=== PATIENT | female | born 1945 | race African-American/Black ===

== ENCOUNTER 2019-02-12 16:56 | Observation (INO) ==
[2019-02-12 20:31] LABS: Apearance,Urine Slightly Hazy (Clear); Bacteria,Urine Occasional /HPF (Few); Bilirubin,Urine Negative (Negative); Blood, Urine Negative (Negative); Glucose,Urine (UA) Negative (Negative); Hyaline Casts,Urine 7 /LPF (0-3); Ketones,Urine Negative (Negative); Mucus,Urine Moderate /LPF (Occasional); Nitrite,Urine Negative (Negative); Protein,Urine 100 MG/DL; RBC,Urine 1 /HPF (0-4); Squamous Epithelial Cell,Urine Occasional /HPF (0-10); Urine Color Yellow (Yellow); Urine Specific Gravity 1.025 (1.001-1.035); Urine Urobilinogen < 2.0 EU/DL (0.2-1.0); WBC,Urine 33 /HPF (0-6)
[2019-02-12 20:44] LABS: Basophils % 0.2 % (0.0-0.8); Eosinophils # 0.1 10*3/uL (0.0-0.87); Eosinophils % 1.6 % (0.00-10.9); Hemoglobin 8.7 GM/DL (12.0-16.0); Immature Granulocytes % 0.2 %; Immature Granulocytes Absolute 0.01 #; Lymphocytes # 1.2 10*3/uL (1.4-4.0); Lymphocytes % 27.7 % (21.3-54.2); Mean Corpuscular Volume 94.9 FL (87-102); Mean Platelet Volume 10.8 FL (9.6-12.0); Monocytes % 10.1 % (1.7-12.7); Neutrophils % 60.2 % (38.7-73.9); Platelet Count 237 T/CUMM (130-400); Red Blood Count 3.16 MC/CUMM (3.8-5.5); Red Cell Distribution Width 15.3 % (9.3-17.3); White Blood Count 4.3 T/CUMM (4-12)
[2019-02-12] MEDS ORDERED: cefTRIAXone 1,000 MG in SODIUM CHLORIDE 0.9% 100 ML IV STA (20:45)
[2019-02-12 20:47] LABS: Alanine Aminotransferase 14 U/L (13-56); Albumin 3.5 G/DL (3.4-5.0); Alkaline Phosphatase 49 U/L (45-117); Amylase 108 U/L (25-115); Aspartate Amino Transferase 21 U/L (0-37); Bilirubin,Total < 0.39 MG/DL (0.2-1.0); Blood Urea Nitrogen 14 MG/DL (7-18); Calcium 9.5 MG/DL (8.5-10.1); Glucose 89 MG/DL (74-106); Osmolality,Calculated 285.8 MOS/KG (273-304); Total Protein 7.9 G/DL (6.4-8.3)
[2019-02-12] MEDS ORDERED: ACETAMINOPHEN 500 MG TABLET PO STA (20:48)
[2019-02-12] MEDS ORDERED: methylPREDNISolone SOD SUC 125 MG/2 ML VIAL IV STA (22:16)
[2019-02-12] MEDS ORDERED: ALBUTEROL/IPRATROPIUM 3 ML NEB RESP TX STA (22:17)
[2019-02-12] MEDS ORDERED: FUROSEMIDE 40 MG/4 ML VIAL IV STA (22:38)
[2019-02-13] MEDS ORDERED: KETOROLAC 30 MG/1 ML VIAL IV STA (00:55)
[2019-02-13] MEDS ORDERED: PHENAZOPYRIDINE 95 MG TABLET PO STA (00:55)
[2019-02-13] MEDS ORDERED: MAGNESIUM SULF RIDER 4 GM in PREMIX 1 EACH IV PRN (00:59)
[2019-02-13] MEDS ORDERED: ZALEPLON 5 MG CAPSULE PO PRN (00:59)
[2019-02-13] MEDS ORDERED: MAGNESIUM SULF RIDER 2 GM in PREMIX 1 EACH IV PRN (00:59)
[2019-02-13] MEDS ORDERED: DOCUSATE SODIUM 100 MG CAPSULE PO PRN (00:59)
[2019-02-13] MEDS ORDERED: ACETAMINOPHEN 325 MG TABLET PO PRN (00:59)
[2019-02-13] MEDS: POTASSIUM CHLORIDE 20 MEQ TABLET PO PRN ×2 (03:03→06:26)
[2019-02-13] MEDS: DICYCLOMINE 20 MG TABLET PO SCH ×3 (03:03→17:57)
[2019-02-13 07:44] LABS: Albumin 3.4 G/DL (3.4-5.0); Bilirubin,Total 0.4 MG/DL (0.2-1.0); Calcium 9.2 MG/DL (8.5-10.1); Osmolality,Calculated 287.8 MOS/KG (273-304); Total Protein 7.8 G/DL (6.4-8.3)
[2019-02-13] MEDS: ROSUVASTATIN 20 MG TABLET PO SCH (08:47)
[2019-02-13] MEDS: ESCITALOPRAM 10 MG TABLET PO SCH (08:47)
[2019-02-13] MEDS: MECLIZINE 25 MG TABLET PO SCH ×3 (08:48→22:03)
[2019-02-13] MEDS: SUCRALFATE 1 GM TABLET PO SCH ×4 (08:48→22:03)
[2019-02-13] MEDS: busPIRone 15 MG TABLET PO SCH ×2 (08:48→22:02)
[2019-02-13] MEDS: PANTOPRAZOLE 40 MG TABLET PO SCH (08:48)
[2019-02-13] MEDS: MONTELUKAST 10 MG TABLET PO SCH (08:49)
[2019-02-13] MEDS: METOPROLOL SUCCINATE XL 50 MG TABLET PO SCH ×2 (08:49→22:03)
[2019-02-13] MEDS: POTASSIUM CHLORIDE 20 MEQ TABLET PO SCH (08:49)
[2019-02-13] MEDS: ALLOPURINOL 100 MG TABLET PO SCH (08:49)
[2019-02-13] MEDS: COLESTIPOL 1 GM TABLET PO SCH ×2 (08:49→22:01)
[2019-02-13] MEDS: ASPIRIN EC 81 MG TABLET PO SCH (08:49)
[2019-02-13] MEDS: FUROSEMIDE 40 MG/4 ML VIAL IV SCH ×2 (08:50→15:22)
[2019-02-13] MEDS: AZELASTINE NASAL 137 MCG/SPRAY 30 ML BOTTLE BOTH NARES SCH ×2 (08:52→22:04)
[2019-02-13] MEDS ORDERED: NON-FORMULARY MEDICATION (Docusate Sodium 100 MG) PO SCH (09:00)
[2019-02-13] MEDS ORDERED: NON-FORMULARY MEDICATION (Dexlansoprazole [Dexilant] 60 MG) PO SCH (09:00)
[2019-02-13] MEDS ORDERED: valACYclovir 500 MG TABLET PO SCH (09:00)
[2019-02-13] MEDS ORDERED: oxyCODONE/ACETAMINOPHEN 5-325 MG TABLET PO SCH (09:00)
[2019-02-13] MEDS: LEVOFLOXACIN INJ 500 MG in PREMIX 1 EACH IV SCH (11:52)
[2019-02-13] MEDS: ONDANSETRON 4 MG/2 ML VIAL IV PRN (15:21)
[2019-02-13] MEDS ORDERED: RIVAROXABAN 20 MG TABLET PO SCH (17:00)
[2019-02-13] MEDS ORDERED: SACUBITRIL/VALSARTAN 49-51 MG TABLET PO SCH (21:00)
[2019-02-13] MEDS ORDERED: CETIRIZINE 10 MG TABLET PO SCH (21:00)
[2019-02-14] MEDS: POTASSIUM CHLORIDE 20 MEQ TABLET PO PRN (01:26)
[2019-02-14] MEDS: DICYCLOMINE 20 MG TABLET PO SCH ×2 (01:26→11:05)
[2019-02-14] MEDS ORDERED: ALUMINUM/MAGNES/SIMETH MAX STR 30 ML UDCUP PO PRN (04:06)
[2019-02-14] MEDS: AZELASTINE NASAL 137 MCG/SPRAY 30 ML BOTTLE BOTH NARES SCH ×2 (08:58→09:36)
[2019-02-14] MEDS: busPIRone 15 MG TABLET PO SCH ×2 (08:58→09:34)
[2019-02-14] MEDS: FUROSEMIDE 40 MG/4 ML VIAL IV SCH ×2 (08:59→09:33)
[2019-02-14] MEDS: MECLIZINE 25 MG TABLET PO SCH ×2 (08:59→09:35)
[2019-02-14] MEDS: ROSUVASTATIN 20 MG TABLET PO SCH ×2 (08:59→09:33)
[2019-02-14] MEDS: ALLOPURINOL 100 MG TABLET PO SCH ×2 (08:59→09:34)
[2019-02-14] MEDS: PANTOPRAZOLE 40 MG TABLET PO SCH ×2 (09:00→09:35)
[2019-02-14] MEDS: SUCRALFATE 1 GM TABLET PO SCH ×3 (09:00→13:48)
[2019-02-14] MEDS: METOPROLOL SUCCINATE XL 50 MG TABLET PO SCH ×2 (09:00→09:35)
[2019-02-14] MEDS: ASPIRIN EC 81 MG TABLET PO SCH ×2 (09:00→09:36)
[2019-02-14] MEDS: COLESTIPOL 1 GM TABLET PO SCH ×2 (09:00→09:35)
[2019-02-14] MEDS: POTASSIUM CHLORIDE 20 MEQ TABLET PO SCH ×2 (09:00→09:34)
[2019-02-14] MEDS: ESCITALOPRAM 10 MG TABLET PO SCH ×2 (09:00→09:35)
[2019-02-14] MEDS: MONTELUKAST 10 MG TABLET PO SCH ×2 (09:00→09:34)
[2019-02-14] MEDS ORDERED: POLYETHYLENE GLYCOL POWDER 17 GM PACK PO PRN (09:18)
[2019-02-14 10:41] LABS: Basophils % 0.2 % (0.0-0.8); Eosinophils % 0.4 % (0.00-10.9); Hematocrit 27.1 VOL% (35.7-47.0); Immature Granulocytes % 0.2 %; Immature Granulocytes Absolute 0.01 #; Lymphocytes # 0.9 10*3/uL (1.4-4.0); Mean Corpuscular HGB Conc 29.5 GM/DL (32-36); Mean Corpuscular Volume 93.8 FL (87-102); Mean Platelet Volume 10.7 FL (9.6-12.0); Monocytes % 6.6 % (1.7-12.7); Neutrophils % 74.6 % (38.7-73.9); Platelet Count 208 T/CUMM (130-400); Red Blood Count 2.89 MC/CUMM (3.8-5.5); Red Cell Distribution Width 15.2 % (9.3-17.3); White Blood Count 5.2 T/CUMM (4-12)
[2019-02-14] MEDS: ONDANSETRON 4 MG/2 ML VIAL IV PRN (11:05)
[2019-02-14 11:23] LABS: Calcium 8.5 MG/DL (8.5-10.1)
[2019-02-14] MEDS: LEVOFLOXACIN INJ 500 MG in PREMIX 1 EACH IV SCH (13:47)
[2019-02-14 15:49] VITALS: BP 120/73
[2019-02-14] MEDS ORDERED: FLUTICASONE 50 MCG NASAL SPRAY 16 GM BOTTLE BOTH NARES SCH (21:00)
[2019-02-16] MEDS ORDERED: ERGOCALCIFEROL 50,000 UNIT CAPSULE PO SCH (09:00)
== END 2019-02-14 17:20 | disposition home or self-care (01) ==
LOC: N.ED 16:56 → N.EDINP 16:56 → N.TELEN 02-13 01:17
PROVIDERS: ADMIT Internal Medicine; ATTEND Internal Medicine

== ENCOUNTER 2019-03-13 03:25 | Inpatient (IN) ==
[2019-03-13] MEDS ORDERED: PANTOPRAZOLE 40 MG VIAL IV STA (03:39)
[2019-03-13 04:15] LABS: Basophils % 0.4 % (0.0-0.8); Eosinophils # 0.1 10*3/uL (0.0-0.87); Eosinophils % 1.5 % (0.00-10.9); Hematocrit 25.2 VOL% (35.7-47.0); Hemoglobin 7.3 GM/DL (12.0-16.0); Immature Granulocytes % 0.4 %; Immature Granulocytes Absolute 0.02 #; Lymphocytes # 0.8 10*3/uL (1.4-4.0); Lymphocytes % 17.3 % (21.3-54.2); Mean Corpuscular Volume 95.5 FL (87-102); Mean Platelet Volume 10.9 FL (9.6-12.0); Monocytes % 9.1 % (1.7-12.7); Neutrophils % 71.3 % (38.7-73.9); Platelet Count 161 T/CUMM (130-400); Red Blood Count 2.64 MC/CUMM (3.8-5.5); Red Cell Distribution Width 15.7 % (9.3-17.3); White Blood Count 4.6 T/CUMM (4-12)
[2019-03-13] MEDS ORDERED: ONDANSETRON 4 MG/2 ML VIAL IV STA (04:33)
[2019-03-13 04:53] LABS: Alanine Aminotransferase 18 U/L (13-56); Albumin 3.3 G/DL (3.4-5.0); Alkaline Phosphatase 54 U/L (45-117); Aspartate Amino Transferase 28 U/L (0-37); Bilirubin,Total < 0.39 MG/DL (0.2-1.0); Blood Urea Nitrogen 17 MG/DL (7-18); Calcium 8.8 MG/DL (8.5-10.1); Glucose 96 MG/DL (74-106); Osmolality,Calculated 284.1 MOS/KG (273-304)
[2019-03-13] MEDS ORDERED: FUROSEMIDE 40 MG/4 ML VIAL IV STA (05:15)
[2019-03-13] MEDS ORDERED: MAGNESIUM SULF RIDER 4 GM in PREMIX 1 EACH IV PRN (05:25)
[2019-03-13] MEDS ORDERED: MAGNESIUM SULF RIDER 2 GM in PREMIX 1 EACH IV PRN (05:25)
[2019-03-13] MEDS ORDERED: ENOXAPARIN 40 MG/0.4 ML SYRINGE SUBCUT SCH (06:00)
[2019-03-13 06:25] LABS: Basophils % 0.3 % (0.0-0.8); Eosinophils # 0.1 10*3/uL (0.0-0.87); Eosinophils % 1.2 % (0.00-10.9); Immature Granulocytes % 0.3 %; Immature Granulocytes Absolute 0.02 #; Lymphocytes # 1.1 10*3/uL (1.4-4.0); Lymphocytes % 18.9 % (21.3-54.2); Mean Corpuscular HGB Conc 28.6 GM/DL (32-36); Mean Corpuscular Volume 95.2 FL (87-102); Mean Platelet Volume 10.7 FL (9.6-12.0); Monocytes % 7.4 % (1.7-12.7); Neutrophils % 71.9 % (38.7-73.9); Platelet Count 186 T/CUMM (130-400); Red Blood Count 2.94 MC/CUMM (3.8-5.5); Red Cell Distribution Width 15.8 % (9.3-17.3); White Blood Count 5.8 T/CUMM (4-12)
[2019-03-13 06:57] LABS: Elliptocytes Few; Hypochromasia 1+; Platelet Estimate Adequate
[2019-03-13 07:35] LABS: Sedimentation Rate-Westergren 75 MM/HR (0-30)
[2019-03-13 08:12] LABS: Folate 10.8 NG/ML (5.4-24.0); Vitamin B12 354 PG/ML (211-911)
[2019-03-13] MEDS: FUROSEMIDE 40 MG/4 ML VIAL IV SCH ×2 (09:32→15:49)
[2019-03-13] MEDS: PANTOPRAZOLE 40 MG TABLET PO SCH (09:32)
[2019-03-13 09:57] LABS: Hemoglobin A1 (Alkaline) 97.8 % (96.5-98.5); Hemoglobin A2 (Alkaline) 2.2 % (1.5-3.5)
[2019-03-13] MEDS: SACUBITRIL/VALSARTAN 49-51 MG TABLET PO SCH ×2 (11:36→22:10)
[2019-03-13] MEDS: amLODIPine 5 MG TABLET PO SCH (11:36)
[2019-03-13] MEDS: METOPROLOL SUCCINATE XL 50 MG TABLET PO SCH ×2 (11:36→22:09)
[2019-03-13] MEDS: ACETAMINOPHEN 325 MG TABLET PO PRN (14:11)
[2019-03-13] MEDS: ROSUVASTATIN 20 MG TABLET PO SCH (22:10)
[2019-03-14 05:52] LABS: Osmolality,Calculated 274.5 MOS/KG (273-304)
[2019-03-14 06:01] LABS: Basophils % 0.2 % (0.0-0.8); Eosinophils # 0.1 10*3/uL (0.0-0.87); Eosinophils % 1.5 % (0.00-10.9); Hematocrit 28.2 VOL% (35.7-47.0); Hemoglobin 8.3 GM/DL (12.0-16.0); Immature Granulocytes % 0.2 %; Immature Granulocytes Absolute 0.01 #; Lymphocytes # 0.7 10*3/uL (1.4-4.0); Lymphocytes % 17.1 % (21.3-54.2); Mean Corpuscular HGB Conc 29.4 GM/DL (32-36); Mean Corpuscular Volume 91.9 FL (87-102); Mean Platelet Volume 11.4 FL (9.6-12.0); Monocytes % 9.7 % (1.7-12.7); Neutrophils % 71.3 % (38.7-73.9); Platelet Count 186 T/CUMM (130-400); Red Blood Count 3.07 MC/CUMM (3.8-5.5); Red Cell Distribution Width 15.8 % (9.3-17.3)
[2019-03-14] MEDS: SACUBITRIL/VALSARTAN 49-51 MG TABLET PO SCH ×2 (09:09→21:15)
[2019-03-14] MEDS: METOPROLOL SUCCINATE XL 50 MG TABLET PO SCH ×2 (09:10→21:16)
[2019-03-14] MEDS: amLODIPine 5 MG TABLET PO SCH (09:10)
[2019-03-14] MEDS: FUROSEMIDE 40 MG/4 ML VIAL IV SCH ×2 (09:10→18:41)
[2019-03-14] MEDS: ASPIRIN EC 81 MG TABLET PO SCH (09:10)
[2019-03-14] MEDS: PANTOPRAZOLE 40 MG TABLET PO SCH (09:10)
[2019-03-14] MEDS: ROSUVASTATIN 20 MG TABLET PO SCH (21:15)
[2019-03-14] MEDS: ACETAMINOPHEN 325 MG TABLET PO PRN (21:15)
[2019-03-15] MEDS: POTASSIUM CHLORIDE 20 MEQ TABLET PO PRN ×4 (04:19→11:42)
[2019-03-15 06:48] LABS: Basophils % 0.3 % (0.0-0.8); Eosinophils # 0.1 10*3/uL (0.0-0.87); Eosinophils % 2.1 % (0.00-10.9); Hemoglobin 9.5 GM/DL (12.0-16.0); Immature Granulocytes % 0.3 %; Immature Granulocytes Absolute 0.01 #; Lymphocytes # 0.8 10*3/uL (1.4-4.0); Lymphocytes % 23.4 % (21.3-54.2); Mean Corpuscular HGB Conc 29.7 GM/DL (32-36); Mean Platelet Volume 11.1 FL (9.6-12.0); Monocytes % 11.9 % (1.7-12.7); Platelet Count 196 T/CUMM (130-400); Red Blood Count 3.48 MC/CUMM (3.8-5.5); Red Cell Distribution Width 15.6 % (9.3-17.3); White Blood Count 3.3 T/CUMM (4-12)
[2019-03-15 07:13] LABS: Calcium 9.1 MG/DL (8.5-10.1); Osmolality,Calculated 276.7 MOS/KG (273-304)
[2019-03-15] MEDS: FUROSEMIDE 40 MG/4 ML VIAL IV SCH (08:37)
[2019-03-15] MEDS: ASPIRIN EC 81 MG TABLET PO SCH (08:37)
[2019-03-15] MEDS: PANTOPRAZOLE 40 MG TABLET PO SCH (08:37)
[2019-03-15] MEDS: SACUBITRIL/VALSARTAN 49-51 MG TABLET PO SCH ×2 (08:37→21:45)
[2019-03-15] MEDS ORDERED: METOPROLOL SUCCINATE XL 100 MG TABLET PO SCH (09:00)
[2019-03-15] MEDS: ONDANSETRON 4 MG/2 ML VIAL IV PRN (10:43)
[2019-03-15] MEDS ORDERED: SODIUM CHLORIDE 0.9% 250 ML IV ONE (12:55)
[2019-03-15] MEDS: ROSUVASTATIN 20 MG TABLET PO SCH (21:45)
[2019-03-16 06:25] LABS: Basophils % 0.6 % (0.0-0.8); Eosinophils # 0.1 10*3/uL (0.0-0.87); Eosinophils % 1.7 % (0.00-10.9); Hematocrit 30.1 VOL% (35.7-47.0); Hemoglobin 8.8 GM/DL (12.0-16.0); Immature Granulocytes % 0.6 %; Immature Granulocytes Absolute 0.02 #; Lymphocytes % 27.7 % (21.3-54.2); Mean Corpuscular HGB Conc 29.2 GM/DL (32-36); Mean Platelet Volume 11.2 FL (9.6-12.0); Monocytes % 13.1 % (1.7-12.7); Neutrophils % 56.3 % (38.7-73.9); Platelet Count 192 T/CUMM (130-400); Red Blood Count 3.27 MC/CUMM (3.8-5.5); Red Cell Distribution Width 15.5 % (9.3-17.3); White Blood Count 3.6 T/CUMM (4-12)
[2019-03-16 06:48] LABS: Calcium 9.2 MG/DL (8.5-10.1); Osmolality,Calculated 281.4 MOS/KG (273-304)
[2019-03-16] MEDS: FUROSEMIDE 40 MG/4 ML VIAL IV SCH (07:27)
[2019-03-16] MEDS: PANTOPRAZOLE 40 MG TABLET PO SCH (08:00)
[2019-03-16] MEDS: ASPIRIN EC 81 MG TABLET PO SCH (08:00)
[2019-03-16] MEDS: METOPROLOL SUCCINATE XL 50 MG TABLET PO SCH (08:00)
[2019-03-16] MEDS: SACUBITRIL/VALSARTAN 49-51 MG TABLET PO SCH ×2 (08:00→20:38)
[2019-03-16] MEDS: ONDANSETRON 4 MG/2 ML VIAL IV PRN (16:19)
[2019-03-16] MEDS: ROSUVASTATIN 20 MG TABLET PO SCH (20:38)
[2019-03-17 05:28] LABS: Basophils % 0.6 % (0.0-0.8); Eosinophils # 0.1 10*3/uL (0.0-0.87); Eosinophils % 2.1 % (0.00-10.9); Hematocrit 29.8 VOL% (35.7-47.0); Hemoglobin 8.8 GM/DL (12.0-16.0); Immature Granulocytes % 0.3 %; Immature Granulocytes Absolute 0.01 #; Lymphocytes % 30.9 % (21.3-54.2); Mean Corpuscular HGB Conc 29.5 GM/DL (32-36); Mean Corpuscular Volume 91.7 FL (87-102); Mean Platelet Volume 10.9 FL (9.6-12.0); Monocytes % 15.4 % (1.7-12.7); Neutrophils % 50.7 % (38.7-73.9); Platelet Count 193 T/CUMM (130-400); Red Blood Count 3.25 MC/CUMM (3.8-5.5); Red Cell Distribution Width 15.6 % (9.3-17.3); White Blood Count 3.4 T/CUMM (4-12)
[2019-03-17 05:54] LABS: Calcium 9.4 MG/DL (8.5-10.1); Osmolality,Calculated 284.1 MOS/KG (273-304)
[2019-03-17] MEDS: PANTOPRAZOLE 40 MG TABLET PO SCH (08:35)
[2019-03-17] MEDS: SACUBITRIL/VALSARTAN 49-51 MG TABLET PO SCH (08:35)
[2019-03-17] MEDS: METOPROLOL SUCCINATE XL 50 MG TABLET PO SCH (08:35)
[2019-03-17] MEDS: ASPIRIN EC 81 MG TABLET PO SCH (08:35)
[2019-03-17 12:53] VITALS: BP 136/81
== END 2019-03-17 12:51 | disposition home or self-care (01) | DRG 292 ==
LOC: EDUNIT# → EDBD → N.ED 03:25 → N.EDINP 05:25 → N.5E 06:42
PROVIDERS: ADMIT Internal Medicine; ATTEND Internal Medicine

== ENCOUNTER 2019-10-04 19:10 | Inpatient (IN) ==
[2019-10-04] MEDS ORDERED: KETOROLAC 30 MG/1 ML VIAL IV STA (19:49)
[2019-10-04] MEDS ORDERED: HYDROmorphone 2 MG/1 ML VIAL IV STA (19:49)
[2019-10-04] MEDS ORDERED: ONDANSETRON 4 MG/2 ML VIAL IV STA (19:49)
[2019-10-04] MEDS ORDERED: ALUM/MAG/SIMETH/LIDO VISC 1:1 30 ML BOTTLE PO STA (19:49)
[2019-10-04] MEDS ORDERED: PANTOPRAZOLE 40 MG VIAL IV STA (19:49)
[2019-10-04 20:03] LABS: Basophils % 0.2 % (0.0-0.8); Eosinophils # 0.1 10*3/uL (0.0-0.87); Eosinophils % 0.6 % (0.00-10.9); Hematocrit 32.1 VOL% (35.7-47.0); Hemoglobin 9.9 GM/DL (12.0-16.0); Immature Granulocytes % 0.4 %; Immature Granulocytes Absolute 0.04 #; Lymphocytes # 0.8 10*3/uL (1.4-4.0); Lymphocytes % 8.1 % (21.3-54.2); Mean Corpuscular HGB Conc 30.8 GM/DL (32-36); Mean Corpuscular Volume 102.9 FL (87-102); Mean Platelet Volume 10.1 FL (9.6-12.0); Monocytes % 5.9 % (1.7-12.7); Neutrophils % 84.8 % (38.7-73.9); Platelet Count 131 T/CUMM (130-400); Red Blood Count 3.12 MC/CUMM (3.8-5.5); Red Cell Distribution Width 15.4 % (9.3-17.3); White Blood Count 9.7 T/CUMM (4-12)
[2019-10-04 20:26] LABS: Albumin 3.5 G/DL (3.4-5.0); Bilirubin,Total 0.4 MG/DL (0.2-1.0); Calcium 8.4 MG/DL (8.5-10.1); Osmolality,Calculated 282.5 MOS/KG (273-304)
[2019-10-04] MEDS ORDERED: LEVOFLOXACIN INJ 750 MG in PREMIX 1 EACH IV STA (21:07)
[2019-10-04] MEDS ORDERED: ALBUTEROL/IPRATROPIUM 3 ML NEB RESP TX STA (21:07)
[2019-10-04 21:26] LABS: Apearance,Urine CLEAR (Clear); Bilirubin,Urine Negative (Negative); Blood, Urine Negative (Negative); Glucose,Urine (UA) Negative (Negative); Ketones,Urine Negative (Negative); Mucus,Urine Occasional /LPF (Occasional); Nitrite,Urine Negative (Negative); Protein,Urine 30 MG/DL; RBC,Urine <1 /HPF (0-4); Squamous Epithelial Cell,Urine Occasional /HPF (0-10); Urine Color Yellow (Yellow); Urine Specific Gravity 1.021 (1.001-1.035); Urine Urobilinogen < 2.0 EU/DL (0.2-1.0); WBC,Urine 1 /HPF (0-6)
[2019-10-04] MEDS ORDERED: ALBUTEROL 2.5 MG/3 ML NEB RESP TX PRN (21:28)
[2019-10-04] MEDS ORDERED: DOCUSATE SODIUM 100 MG CAPSULE PO PRN (21:29)
[2019-10-04] MEDS ORDERED: diphenhydrAMINE CAP 25 MG CAPSULE PO PRN (21:29)
[2019-10-04] MEDS ORDERED: ZALEPLON 5 MG CAPSULE PO PRN (21:29)
[2019-10-04] MEDS ORDERED: ACETAMINOPHEN 325 MG TABLET PO PRN (21:29)
[2019-10-04] MEDS ORDERED: ONDANSETRON 4 MG/2 ML VIAL IV PRN (21:29)
[2019-10-04] MEDS ORDERED: ENOXAPARIN 100 MG/ML SYRINGE SUBCUT SCH (21:30)
[2019-10-04 21:31] LABS: Barbiturates Screen,Urine Negative (Negative); Benzodiazepines Screen,Urine Negative (Negative); Cannabinoid Screen,Urine Negative (Negative); Opiate Screen,Urine Positive (Negative); Phencyclidine Screen,Urine Negative (Negative)
[2019-10-05] MEDS ORDERED: ALBUTEROL 2.5 MG/3 ML NEB RESP TX SCH (01:00)
[2019-10-05] MEDS: ALBUTEROL/IPRATROPIUM 3 ML NEB RESP TX SCH ×7 (01:01→22:37)
[2019-10-05 01:23] LABS: ABG Base Excess -1.3 MMOL/L (-2.5-2.5); ABG HCO3 23.4 MMOL/L (20-26); ABG Oxygen Saturation 99.3 % (95-100); ABG PCO2 55.6 MM HG (35-48); ABG TCO2 24.4 MMOL/L (23-27); Allen Test Positive
[2019-10-05] MEDS: SODIUM CHLORIDE 0.9% 1,000 ML IV SCH ×2 (02:04→11:46)
[2019-10-05 05:52] LABS: Basophils % 0.1 % (0.0-0.8); Eosinophils % 0.3 % (0.00-10.9); Hematocrit 27.5 VOL% (35.7-47.0); Hemoglobin 8.3 GM/DL (12.0-16.0); Immature Granulocytes % 0.3 %; Immature Granulocytes Absolute 0.02 #; Lymphocytes # 0.7 10*3/uL (1.4-4.0); Lymphocytes % 9.9 % (21.3-54.2); Mean Corpuscular HGB Conc 30.2 GM/DL (32-36); Mean Corpuscular Volume 103.8 FL (87-102); Mean Platelet Volume 10.4 FL (9.6-12.0); Monocytes % 6.9 % (1.7-12.7); Neutrophils % 82.5 % (38.7-73.9); Platelet Count 114 T/CUMM (130-400); Red Blood Count 2.65 MC/CUMM (3.8-5.5); Red Cell Distribution Width 15.4 % (9.3-17.3); White Blood Count 7.1 T/CUMM (4-12)
[2019-10-05 05:58] LABS: Osmolality,Calculated 290.1 MOS/KG (273-304)
[2019-10-05 06:53] LABS: Hepatitis B Core IgM Quant 0.05 Index; Hepatitis B Surface Ag Quant < 0.10 Index; Hepatitis B Surface Ag Result Negative (Negative); Hepatitis C Virus Ab Quant 0.08 Index; Hepatitis C Virus Ab Result Negative (Negative)
[2019-10-05] MEDS: PANTOPRAZOLE 40 MG TABLET PO SCH (10:02)
[2019-10-05] MEDS: METOPROLOL SUCCINATE XL 50 MG TABLET PO SCH (10:02)
[2019-10-05] MEDS: MONTELUKAST 10 MG TABLET PO SCH (10:02)
[2019-10-05] MEDS: POTASSIUM CHLORIDE 20 MEQ TABLET PO SCH (10:02)
[2019-10-05] MEDS: ASPIRIN EC 81 MG TABLET PO SCH (10:02)
[2019-10-05] MEDS ORDERED: FUROSEMIDE 40 MG/4 ML VIAL IV ONE (12:09)
[2019-10-05] MEDS: RIVAROXABAN 20 MG TABLET PO SCH (16:29)
[2019-10-05] MEDS: ROSUVASTATIN 20 MG TABLET PO SCH (21:28)
[2019-10-05] MEDS: FUROSEMIDE 40 MG TABLET PO SCH (21:29)
[2019-10-05] MEDS: LEVOFLOXACIN INJ 750 MG in PREMIX 1 EACH IV SCH (21:29)
[2019-10-06] MEDS: ALBUTEROL/IPRATROPIUM 3 ML NEB RESP TX SCH ×5 (02:37→20:26)
[2019-10-06 04:06] LABS: % Iron Saturation 11.1 % (18-50); Albumin 2.8 G/DL (3.4-5.0); Bilirubin,Direct 0.12 MG/DL (0.0-0.20); Bilirubin,Indirect 0.3 MG/DL (0.0-1.0); Bilirubin,Total 0.4 MG/DL (0.2-1.0); Calcium 7.9 MG/DL (8.5-10.1); Ferritin 64.8 ng/ml (8-252); Osmolality,Calculated 286.5 MOS/KG (273-304); Total Protein 6.6 G/DL (6.4-8.3)
[2019-10-06 04:11] LABS: Basophils % 0.2 % (0.0-0.8); Eosinophils # 0.1 10*3/uL (0.0-0.87); Eosinophils % 1.7 % (0.00-10.9); Hematocrit 26.5 VOL% (35.7-47.0); Immature Granulocytes % 0.6 %; Immature Granulocytes Absolute 0.03 #; Lymphocytes # 0.7 10*3/uL (1.4-4.0); Lymphocytes % 13.2 % (21.3-54.2); Mean Corpuscular HGB Conc 30.2 GM/DL (32-36); Mean Corpuscular Volume 103.1 FL (87-102); Mean Platelet Volume 10.5 FL (9.6-12.0); Monocytes % 6.8 % (1.7-12.7); Neutrophils % 77.5 % (38.7-73.9); Platelet Count 113 T/CUMM (130-400); Red Blood Count 2.57 MC/CUMM (3.8-5.5); Red Cell Distribution Width 15.2 % (9.3-17.3); White Blood Count 5.2 T/CUMM (4-12)
[2019-10-06 04:54] LABS: Folate 8.5 NG/ML (5.4-24.0)
[2019-10-06] MEDS: MORPHINE 4 MG/1 ML VIAL IV PRN ×2 (07:49→17:21)
[2019-10-06] MEDS: ASPIRIN EC 81 MG TABLET PO SCH (08:54)
[2019-10-06] MEDS: PANTOPRAZOLE 40 MG TABLET PO SCH (08:54)
[2019-10-06] MEDS: METOPROLOL SUCCINATE XL 50 MG TABLET PO SCH (08:54)
[2019-10-06] MEDS: FUROSEMIDE 40 MG TABLET PO SCH ×2 (08:54→20:28)
[2019-10-06] MEDS: MONTELUKAST 10 MG TABLET PO SCH (08:54)
[2019-10-06] MEDS: POTASSIUM CHLORIDE 20 MEQ TABLET PO SCH (08:55)
[2019-10-06] MEDS: MAGNESIUM HYDROXIDE SUSP 30 ML UDCUP PO PRN (14:17)
[2019-10-06] MEDS: POLYETHYLENE GLYCOL POWDER 17 GM PACK PO SCH (14:34)
[2019-10-06] MEDS: RIVAROXABAN 20 MG TABLET PO SCH (17:21)
[2019-10-06] MEDS: ROSUVASTATIN 20 MG TABLET PO SCH (20:28)
[2019-10-06] MEDS: LEVOFLOXACIN INJ 750 MG in PREMIX 1 EACH IV SCH (20:29)
[2019-10-07] MEDS: MORPHINE 4 MG/1 ML VIAL IV PRN ×2 (03:33→08:50)
[2019-10-07 04:45] LABS: Basophils % 0.2 % (0.0-0.8); Eosinophils # 0.1 10*3/uL (0.0-0.87); Eosinophils % 1.4 % (0.00-10.9); Immature Granulocytes % 0.3 %; Immature Granulocytes Absolute 0.02 #; Lymphocytes # 0.5 10*3/uL (1.4-4.0); Lymphocytes % 9.2 % (21.3-54.2); Mean Corpuscular HGB Conc 30.8 GM/DL (32-36); Mean Corpuscular Volume 103.6 FL (87-102); Mean Platelet Volume 10.3 FL (9.6-12.0); Neutrophils % 82.9 % (38.7-73.9); Platelet Count 121 T/CUMM (130-400); Red Blood Count 2.51 MC/CUMM (3.8-5.5); Red Cell Distribution Width 14.8 % (9.3-17.3); White Blood Count 5.9 T/CUMM (4-12)
[2019-10-07] MEDS: ALBUTEROL/IPRATROPIUM 3 ML NEB RESP TX SCH ×5 (05:12→19:33)
[2019-10-07 05:58] LABS: Calcium 8.2 MG/DL (8.5-10.1); Osmolality,Calculated 283.5 MOS/KG (273-304)
[2019-10-07] MEDS: PANTOPRAZOLE 40 MG TABLET PO SCH (08:50)
[2019-10-07] MEDS: FUROSEMIDE 40 MG TABLET PO SCH ×2 (08:50→21:16)
[2019-10-07] MEDS: MAGNESIUM HYDROXIDE SUSP 30 ML UDCUP PO PRN (08:50)
[2019-10-07] MEDS: METOPROLOL SUCCINATE XL 50 MG TABLET PO SCH (08:50)
[2019-10-07] MEDS: guaiFENesin/DM ER 600-30 MG TABLET PO PRN ×2 (08:50→21:16)
[2019-10-07] MEDS: ASPIRIN EC 81 MG TABLET PO SCH (08:50)
[2019-10-07] MEDS: POLYETHYLENE GLYCOL POWDER 17 GM PACK PO SCH (08:50)
[2019-10-07] MEDS: MONTELUKAST 10 MG TABLET PO SCH (08:50)
[2019-10-07] MEDS: POTASSIUM CHLORIDE 20 MEQ TABLET PO SCH (08:54)
[2019-10-07] MEDS ORDERED: BENZONATATE 100 MG CAPSULE PO PRN (09:54)
[2019-10-07] MEDS ORDERED: DICYCLOMINE 20 MG TABLET PO PRN (10:51)
[2019-10-07] MEDS: RIVAROXABAN 20 MG TABLET PO SCH (17:45)
[2019-10-07] MEDS: ROSUVASTATIN 20 MG TABLET PO SCH (21:16)
[2019-10-07] MEDS: LEVOFLOXACIN INJ 750 MG in PREMIX 1 EACH IV SCH (21:17)
[2019-10-08] MEDS: ALBUTEROL/IPRATROPIUM 3 ML NEB RESP TX SCH ×7 (00:54→23:48)
[2019-10-08 05:16] LABS: Basophils % 0.4 % (0.0-0.8); Eosinophils # 0.1 10*3/uL (0.0-0.87); Eosinophils % 1.8 % (0.00-10.9); Hematocrit 26.7 VOL% (35.7-47.0); Hemoglobin 8.2 GM/DL (12.0-16.0); Immature Granulocytes % 0.4 %; Immature Granulocytes Absolute 0.02 #; Lymphocytes # 0.6 10*3/uL (1.4-4.0); Lymphocytes % 12.5 % (21.3-54.2); Mean Corpuscular HGB Conc 30.7 GM/DL (32-36); Mean Corpuscular Volume 101.9 FL (87-102); Mean Platelet Volume 10.4 FL (9.6-12.0); Neutrophils % 77.9 % (38.7-73.9); Platelet Count 153 T/CUMM (130-400); Red Blood Count 2.62 MC/CUMM (3.8-5.5); Red Cell Distribution Width 14.6 % (9.3-17.3); White Blood Count 5.1 T/CUMM (4-12)
[2019-10-08 05:47] LABS: Calcium 8.5 MG/DL (8.5-10.1); Osmolality,Calculated 277.7 MOS/KG (273-304)
[2019-10-08] MEDS: MORPHINE 4 MG/1 ML VIAL IV PRN (06:49)
[2019-10-08] MEDS: POTASSIUM CHLORIDE 20 MEQ TABLET PO SCH (10:09)
[2019-10-08] MEDS: PANTOPRAZOLE 40 MG TABLET PO SCH (10:10)
[2019-10-08] MEDS: PROMETHAZINE 25 MG TABLET PO PRN ×2 (10:10→16:56)
[2019-10-08] MEDS: METOPROLOL SUCCINATE XL 50 MG TABLET PO SCH (10:10)
[2019-10-08] MEDS: ASPIRIN EC 81 MG TABLET PO SCH (10:10)
[2019-10-08] MEDS: POLYETHYLENE GLYCOL POWDER 17 GM PACK PO SCH (10:10)
[2019-10-08] MEDS: MONTELUKAST 10 MG TABLET PO SCH (10:10)
[2019-10-08] MEDS: FUROSEMIDE 40 MG TABLET PO SCH ×2 (10:10→23:13)
[2019-10-08] MEDS: RIVAROXABAN 20 MG TABLET PO SCH (16:40)
[2019-10-08] MEDS: ROSUVASTATIN 20 MG TABLET PO SCH (23:13)
[2019-10-08] MEDS: LEVOFLOXACIN INJ 750 MG in PREMIX 1 EACH IV SCH (23:18)
[2019-10-09] MEDS: PROMETHAZINE 25 MG TABLET PO PRN (00:57)
[2019-10-09] MEDS: ALBUTEROL/IPRATROPIUM 3 ML NEB RESP TX SCH ×4 (03:07→15:56)
[2019-10-09 07:00] LABS: Basophils % 0.3 % (0.0-0.8); Eosinophils # 0.1 10*3/uL (0.0-0.87); Eosinophils % 2.4 % (0.00-10.9); Hematocrit 26.3 VOL% (35.7-47.0); Hemoglobin 8.1 GM/DL (12.0-16.0); Immature Granulocytes % 0.3 %; Immature Granulocytes Absolute 0.01 #; Lymphocytes # 0.5 10*3/uL (1.4-4.0); Lymphocytes % 14.5 % (21.3-54.2); Mean Corpuscular HGB Conc 30.8 GM/DL (32-36); Mean Corpuscular Volume 102.3 FL (87-102); Mean Platelet Volume 9.9 FL (9.6-12.0); Monocytes % 7.1 % (1.7-12.7); Neutrophils % 75.4 % (38.7-73.9); Platelet Count 145 T/CUMM (130-400); Red Blood Count 2.57 MC/CUMM (3.8-5.5); Red Cell Distribution Width 14.7 % (9.3-17.3); White Blood Count 3.4 T/CUMM (4-12)
[2019-10-09 07:29] LABS: Calcium 8.4 MG/DL (8.5-10.1); Osmolality,Calculated 280.5 MOS/KG (273-304)
[2019-10-09] MEDS: METOPROLOL SUCCINATE XL 50 MG TABLET PO SCH (09:10)
[2019-10-09] MEDS: POTASSIUM CHLORIDE 20 MEQ TABLET PO SCH (09:10)
[2019-10-09] MEDS: POLYETHYLENE GLYCOL POWDER 17 GM PACK PO SCH (09:10)
[2019-10-09] MEDS: ASPIRIN EC 81 MG TABLET PO SCH (09:11)
[2019-10-09] MEDS: MONTELUKAST 10 MG TABLET PO SCH (09:11)
[2019-10-09] MEDS: FUROSEMIDE 40 MG TABLET PO SCH (09:11)
[2019-10-09] MEDS: PANTOPRAZOLE 40 MG TABLET PO SCH (09:11)
[2019-10-09] MEDS ORDERED: SUCRALFATE 1 GM/10 ML UDCUP PO SCH (11:30)
[2019-10-09 11:50] VITALS: BP 140/79
[2019-10-09] MEDS ORDERED: PANTOPRAZOLE 40 MG TABLET PO SCH (21:00)
== END 2019-10-09 15:50 | disposition home health service (06) | DRG 291 ==
LOC: N.ED 19:10 → N.EDINP 21:29 → SUATTDRO 21:29 → N.EDINP 23:45 → N.TELEN 10-05 00:25
PROVIDERS: ADMIT Internal Medicine; ATTEND Internal Medicine

== ENCOUNTER 2020-12-06 16:31 | Inpatient (IN) ==
[2020-12-06] MEDS ORDERED: HEPARIN LOCK FLUSH 500 UNIT/5 ML SYRINGE IV ONE (17:17)
[2020-12-06 17:24] LABS: ABG Base Excess -0.6 MMOL/L (-2.5-2.5); ABG Oxygen Saturation 99.8 % (95-100); ABG PCO2 50.6 MM HG (35-48); ABG PH 7.321 (7.35-7.45); ABG TCO2 23.7 MMOL/L (23-27)
[2020-12-06 17:45] LABS: Eosinophils % 0.4 % (0.00-10.9); Hemoglobin 10.7 GM/DL (12.0-16.0); Immature Granulocytes % 1.4 %; Lymphocytes # 0.5 10*3/uL (1.4-4.0); Lymphocytes % 6.3 % (21.3-54.2); Mean Corpuscular HGB Conc 29.7 GM/DL (32-36); Mean Corpuscular Volume 111.5 FL (87-102); Mean Platelet Volume 10.6 FL (9.6-12.0); Monocytes % 4.7 % (1.7-12.7); NRBC # 0.06 10*3/uL; Neutrophils % 87.2 % (38.7-73.9); Platelet Count 92 T/CUMM (130-400); Red Blood Count 3.23 MC/CUMM (3.8-5.5); Red Cell Distribution Width 22.5 % (9.3-17.3); White Blood Count 7.3 T/CUMM (4-12)
[2020-12-06 17:48] LABS: INR 1.3; PT Patient Result 13.5 SECS (9.8-11.9)
[2020-12-06 17:54] LABS: Albumin 2.8 G/DL (3.4-5.0); Bilirubin,Total 0.6 MG/DL (0.2-1.0); Calcium 8.3 MG/DL (8.5-10.1); Potassium 3.7 MMOL/L (3.5-5.1); Total Protein 5.7 G/DL (6.4-8.2)
[2020-12-06 17:55] LABS: Bilirubin,Urine Negative (Negative); Blood, Urine Small mg/dL (Negative); Glucose,Urine (UA) Negative (Negative); Ketones,Urine Negative (Negative); Nitrite,Urine Negative (Negative); Protein,Urine 100 MG/DL; Squamous Epithelial Cell,Urine Occasional /HPF (0-10); Urine Appearance CLOUDY (Clear); Urine Color Amber (Yellow); Urine Specific Gravity 1.014 (1.001-1.035); Urine Urobilinogen < 2.0 EU/DL (0.2-1.0); WBC,Urine 1 /HPF (0-6)
[2020-12-06 18:40] LABS: Anisocytosis 1+; Atypical Lymphocytes Few; Macrocytosis 2+
[2020-12-06 18:41] LABS: Hypochromasia 1+; Microcytosis 1+; Platelet Estimate Decreased
[2020-12-06 20:07] LABS: Amorphous Crystals,Urine Moderate /HPF (Few); Bilirubin,Urine Negative (Negative); Blood, Urine Small mg/dL (Negative); Glucose,Urine (UA) Negative (Negative); Hyaline Casts,Urine 1 /LPF (0-3); Ketones,Urine Negative (Negative); Nitrite,Urine Negative (Negative); Protein,Urine 100 MG/DL; Squamous Epithelial Cell,Urine Occasional /HPF (0-10); Urine Appearance Slightly Hazy (Clear); Urine Color Yellow (Yellow); Urine Specific Gravity 1.015 (1.001-1.035); Urine Urobilinogen < 2.0 EU/DL (0.2-1.0)
[2020-12-06] MEDS ORDERED: GLUCAGON 1 MG VIAL IM PRN (22:39)
[2020-12-06] MEDS ORDERED: DEXTROSE 50% 25 GM/50 ML VIAL IV PRN (22:39)
[2020-12-06] MEDS ORDERED: ONDANSETRON 4 MG/2 ML VIAL IV PRN (22:39)
[2020-12-07] MEDS: HEPARIN 5,000 UNIT/1 ML VIAL SUBCUT SCH ×4 (00:20→23:33)
[2020-12-07 08:39] LABS: Basophils # 0.1 10*3/uL (0.0-0.2); Basophils % 0.9 % (0.0-0.8); Eosinophils % 0.5 % (0.00-10.9); Hemoglobin 11.2 GM/DL (12.0-16.0); Immature Granulocytes % 2.1 %; Immature Granulocytes Absolute 0.17 #; Lymphocytes # 1.1 10*3/uL (1.4-4.0); Lymphocytes % 13.3 % (21.3-54.2); Mean Corpuscular HGB Conc 30.3 GM/DL (32-36); Mean Corpuscular Volume 112.8 FL (87-102); Mean Platelet Volume 11.4 FL (9.6-12.0); Monocytes % 8.2 % (1.7-12.7); NRBC # 0.06 10*3/uL; Platelet Count 64 T/CUMM (130-400); Red Blood Count 3.28 MC/CUMM (3.8-5.5); White Blood Count 8.1 T/CUMM (4-12)
[2020-12-07 09:03] LABS: Platelet Estimate Adequate
[2020-12-07] MEDS: AMIODARONE 200 MG TABLET PEG SCH (09:05)
[2020-12-07] MEDS: METOPROLOL SUCCINATE XL 50 MG TABLET PO SCH (09:05)
[2020-12-07] MEDS: FERROUS SULFATE 325 MG TABLET PO SCH ×2 (09:05→21:54)
[2020-12-07] MEDS: hydrALAZINE 10 MG TABLET PEG SCH ×3 (09:07→21:53)
[2020-12-07] MEDS: allopurinoL 300 MG TABLET PEG SCH (09:07)
[2020-12-07] MEDS: ALUMINUM/MAGNES/SIMETH MAX STR 30 ML UDCUP PEG SCH (09:08)
[2020-12-07] MEDS: busPIRone 15 MG TABLET PEG SCH ×2 (09:08→21:53)
[2020-12-07] MEDS: FAMOTIDINE 20 MG TABLET PEG SCH (09:08)
[2020-12-07] MEDS: ISOSORBIDE MONONITRATE 30 MG TABLET PO SCH (09:08)
[2020-12-07] MEDS: FUROSEMIDE 40 MG/4 ML VIAL IV SCH (09:10)
[2020-12-07 09:13] LABS: Albumin 2.3 G/DL (3.4-5.0); Bilirubin,Total 0.7 MG/DL (0.2-1.0); Calcium 8.6 MG/DL (8.5-10.1); Osmolality,Calculated 291.5 MOS/KG (273-304); Potassium 4.3 MMOL/L (3.5-5.1); Total Protein 5.9 G/DL (6.4-8.2)
[2020-12-07] MEDS: cefTRIAXone 1,000 MG in SYRINGE 1 EACH IV SCH (12:32)
[2020-12-07] MEDS: FLUCONAZOLE 100 MG TABLET PO SCH (12:32)
[2020-12-07] MEDS ORDERED: ROSUVASTATIN 20 MG TABLET PEG SCH (21:00)
[2020-12-07] MEDS: DOCUSATE SODIUM 100 MG CAPSULE PO SCH (21:53)
[2020-12-07] MEDS: GABAPENTIN 100 MG CAPSULE PEG SCH (21:53)
[2020-12-08 06:04] LABS: Basophils % 0.2 % (0.0-0.8); Eosinophils % 0.4 % (0.00-10.9); Hematocrit 34.9 VOL% (35.7-47.0); Hemoglobin 10.4 GM/DL (12.0-16.0); Immature Granulocytes % 1.1 %; Immature Granulocytes Absolute 0.06 #; Lymphocytes # 0.7 10*3/uL (1.4-4.0); Lymphocytes % 11.9 % (21.3-54.2); Mean Corpuscular HGB Conc 29.8 GM/DL (32-36); Mean Corpuscular Volume 112.9 FL (87-102); Monocytes % 4.8 % (1.7-12.7); NRBC # 0.02 10*3/uL; Neutrophils % 81.6 % (38.7-73.9); Platelet Count 81 T/CUMM (130-400); Red Blood Count 3.09 MC/CUMM (3.8-5.5); Red Cell Distribution Width 22.7 % (9.3-17.3); White Blood Count 5.5 T/CUMM (4-12)
[2020-12-08 06:15] LABS: Calcium 8.4 MG/DL (8.5-10.1); Osmolality,Calculated 303.6 MOS/KG (273-304); Potassium 3.9 MMOL/L (3.5-5.1)
[2020-12-08 06:48] LABS: Eosinophils 1 % (0-10); Lymphocytes 13 % (20-55); Nucleated Red Blood Cells 2 (0-5); Platelet Estimate Decreased; Segmented Neutrophils 83 % (50-85); Total Cells Counted 100
[2020-12-08 06:49] LABS: Hypochromasia 1+; Microcytosis 1+
[2020-12-08] MEDS: busPIRone 15 MG TABLET PEG SCH ×2 (08:38→22:27)
[2020-12-08] MEDS: hydrALAZINE 10 MG TABLET PEG SCH ×4 (08:38→22:27)
[2020-12-08] MEDS: FLUCONAZOLE 100 MG TABLET PO SCH (08:38)
[2020-12-08] MEDS: ASPIRIN EC 81 MG TABLET PO SCH (08:38)
[2020-12-08] MEDS: ALUMINUM/MAGNES/SIMETH MAX STR 30 ML UDCUP PEG SCH (08:38)
[2020-12-08] MEDS: ISOSORBIDE MONONITRATE 30 MG TABLET PO SCH (08:39)
[2020-12-08] MEDS: FAMOTIDINE 20 MG TABLET PEG SCH (08:39)
[2020-12-08] MEDS: AMIODARONE 200 MG TABLET PEG SCH (08:40)
[2020-12-08] MEDS: allopurinoL 300 MG TABLET PEG SCH (08:40)
[2020-12-08] MEDS: FERROUS SULFATE 325 MG TABLET PO SCH ×2 (08:40→22:27)
[2020-12-08] MEDS: METOPROLOL SUCCINATE XL 50 MG TABLET PO SCH (08:40)
[2020-12-08] MEDS: FUROSEMIDE 40 MG/4 ML VIAL IV SCH (08:41)
[2020-12-08] MEDS: HEPARIN 5,000 UNIT/1 ML VIAL SUBCUT SCH ×3 (08:44→22:27)
[2020-12-08] MEDS: cefTRIAXone 1,000 MG in SYRINGE 1 EACH IV SCH (09:36)
[2020-12-08 11:08] LABS: Hepatitis B Core IgM Quant < 0.05 Index; Hepatitis B Surface Ag Quant < 0.10 Index; Hepatitis B Surface Ag Result Non-Reactive (NonReactive); Hepatitis C Virus Ab Quant 0.08 Index; Hepatitis C Virus Ab Result Non-Reactive (NonReactive)
[2020-12-08] MEDS ORDERED: HEPARIN 10,000 UNIT/10 ML VIAL IV SCH (12:00)
[2020-12-08] MEDS: DOCUSATE SODIUM 100 MG CAPSULE PO SCH (22:27)
[2020-12-08] MEDS: GABAPENTIN 100 MG CAPSULE PEG SCH (22:27)
[2020-12-09] MEDS: HEPARIN 5,000 UNIT/1 ML VIAL SUBCUT SCH ×2 (06:16→15:06)
[2020-12-09 06:56] LABS: Basophils % 0.4 % (0.0-0.8); Hematocrit 34.6 VOL% (35.7-47.0); Hemoglobin 10.4 GM/DL (12.0-16.0); Immature Granulocytes % 0.7 %; Immature Granulocytes Absolute 0.04 #; Lymphocytes # 0.7 10*3/uL (1.4-4.0); Lymphocytes % 13.1 % (21.3-54.2); Mean Corpuscular HGB Conc 30.1 GM/DL (32-36); Mean Corpuscular Volume 109.5 FL (87-102); Mean Platelet Volume 9.8 FL (9.6-12.0); Monocytes % 3.7 % (1.7-12.7); NRBC # 0.02 10*3/uL; Neutrophils % 82.1 % (38.7-73.9); Platelet Count 74 T/CUMM (130-400); Red Blood Count 3.16 MC/CUMM (3.8-5.5); Red Cell Distribution Width 22.3 % (9.3-17.3); White Blood Count 5.7 T/CUMM (4-12)
[2020-12-09 07:11] LABS: Calcium 8.4 MG/DL (8.5-10.1); Osmolality,Calculated 290.1 MOS/KG (273-304); Potassium 3.5 MMOL/L (3.5-5.1)
[2020-12-09 07:17] LABS: Hypochromasia 1+; Microcytosis 1+; Platelet Estimate Decreased
[2020-12-09 07:27] LABS: Albumin 2.6 G/DL (3.4-5.0); Bilirubin,Total 0.7 MG/DL (0.2-1.0); Calcium 8.3 MG/DL (8.5-10.1); Potassium 3.5 MMOL/L (3.5-5.1); Total Protein 5.6 G/DL (6.4-8.2)
[2020-12-09] MEDS: hydrALAZINE 10 MG TABLET PEG SCH ×2 (09:33→15:06)
[2020-12-09] MEDS: FERROUS SULFATE 325 MG TABLET PO SCH (09:33)
[2020-12-09] MEDS: AMIODARONE 200 MG TABLET PEG SCH (09:33)
[2020-12-09] MEDS: ASPIRIN EC 81 MG TABLET PO SCH (09:33)
[2020-12-09] MEDS: busPIRone 15 MG TABLET PEG SCH (09:33)
[2020-12-09] MEDS: allopurinoL 300 MG TABLET PEG SCH (09:34)
[2020-12-09] MEDS: METOPROLOL SUCCINATE XL 50 MG TABLET PO SCH (09:34)
[2020-12-09] MEDS: ISOSORBIDE MONONITRATE 30 MG TABLET PO SCH (09:34)
[2020-12-09] MEDS: FLUCONAZOLE 100 MG TABLET PO SCH (09:34)
[2020-12-09] MEDS: cefTRIAXone 1,000 MG in SYRINGE 1 EACH IV SCH (09:34)
[2020-12-09] MEDS: FAMOTIDINE 20 MG TABLET PEG SCH (09:34)
[2020-12-09] MEDS: ALUMINUM/MAGNES/SIMETH MAX STR 30 ML UDCUP PEG SCH (09:36)
[2020-12-09] MEDS: FUROSEMIDE 40 MG/4 ML VIAL IV SCH (09:37)
[2020-12-09 12:31] VITALS: BP 123/76
== END 2020-12-09 19:46 | disposition home health service (06) | DRG 291 ==
LOC: EDUNIT# → EDBD → N.ED 16:31 → N.EDINP 20:57 → SUATTDRO 20:57 → N.EDINP 22:18 → N.TELEN 23:09
PROVIDERS: ADMIT Emergency Medicine; ATTEND Internal Medicine

== ENCOUNTER 2021-01-04 15:33 | Inpatient (IN) ==
[2021-01-04 17:01] LABS: Basophils % 0.3 % (0.0-0.8); Eosinophils % 0.2 % (0.00-10.9); Hematocrit 38.5 VOL% (35.7-47.0); Hemoglobin 11.6 GM/DL (12.0-16.0); Immature Granulocytes % 0.2 %; Immature Granulocytes Absolute 0.01 #; Lymphocytes # 1.6 10*3/uL (1.4-4.0); Lymphocytes % 25.2 % (21.3-54.2); Mean Corpuscular HGB Conc 30.1 GM/DL (32-36); Mean Corpuscular Volume 105.8 FL (87-102); Mean Platelet Volume 11.9 FL (9.6-12.0); Monocytes % 5.6 % (1.7-12.7); Neutrophils % 68.5 % (38.7-73.9); Platelet Count 158 T/CUMM (130-400); Red Blood Count 3.64 MC/CUMM (3.8-5.5); Red Cell Distribution Width 18.9 % (9.3-17.3); White Blood Count 6.4 T/CUMM (4-12)
[2021-01-04 17:08] LABS: Albumin 2.5 G/DL (3.4-5.0); Bilirubin,Total 0.4 MG/DL (0.2-1.0); Calcium 8.6 MG/DL (8.5-10.1); Osmolality,Calculated 276.7 MOS/KG (273-304); Potassium 4.7 MMOL/L (3.5-5.1); Total Protein 6.4 G/DL (6.4-8.2)
[2021-01-04] MEDS ORDERED: ONDANSETRON ODT 4 MG TABLET PO ONE (18:24)
[2021-01-04] MEDS ORDERED: ONDANSETRON ODT 4 MG TABLET PO STA (18:47)
[2021-01-04] MEDS ORDERED: DEXTROSE 50% 25 GM/50 ML VIAL IV PRN (19:08)
[2021-01-04] MEDS ORDERED: GLUCAGON 1 MG VIAL IM PRN (19:08)
[2021-01-04] MEDS ORDERED: cefTRIAXone 1,000 MG in SODIUM CHLORIDE 0.9% 100 ML IV SCH (19:30)
[2021-01-04] MEDS: HEPARIN 5,000 UNIT/1 ML VIAL SUBCUT SCH (19:59)
[2021-01-04] MEDS ORDERED: AZITHROMYCIN INJ 250 MG in SODIUM CHLORIDE 0.9% 250 ML IV SCH (20:00)
[2021-01-04] MEDS ORDERED: MAGNESIUM SULF RIDER 4 GM/100 ML PREMIX IV ONE (20:01)
[2021-01-04 20:03] LABS: Bacteria,Urine Few /HPF (Few); Bilirubin,Urine Negative (Negative); Blood, Urine Small mg/dL (Negative); Glucose,Urine (UA) Negative (Negative); Ketones,Urine Negative (Negative); Nitrite,Urine Negative (Negative); Protein,Urine 100 MG/DL; RBC,Urine 7 /HPF (0-4); Squamous Epithelial Cell,Urine Few /HPF (0-10); Urine Appearance CLOUDY (Clear); Urine Color Amber (Yellow); Urine Specific Gravity 1.021 (1.001-1.035); Urine Urobilinogen < 2.0 EU/DL (0.2-1.0); WBC,Urine 140 /HPF (0-6)
[2021-01-04] MEDS ORDERED: AMIODARONE INJ 150 MG in DEXTROSE 5% 100 ML IV ONE (20:05)
[2021-01-04] MEDS: ROSUVASTATIN 20 MG TABLET PEG SCH (22:44)
[2021-01-04] MEDS: busPIRone 15 MG TABLET PEG SCH (22:44)
[2021-01-04] MEDS: METOPROLOL SUCCINATE XL 50 MG TABLET PO SCH (22:48)
[2021-01-04] MEDS: hydrALAZINE 10 MG TABLET PEG SCH (22:48)
[2021-01-04] MEDS: GABAPENTIN 100 MG CAPSULE PEG SCH (22:49)
[2021-01-04] MEDS: CLINDAMYCIN INJ 600 MG in PREMIX 1 EACH IV SCH (23:21)
[2021-01-05 00:52] LABS: Basophils % 0.2 % (0.0-0.8); Hematocrit 39.1 VOL% (35.7-47.0); Hemoglobin 11.9 GM/DL (12.0-16.0); Immature Granulocytes % 0.7 %; Immature Granulocytes Absolute 0.07 #; Lymphocytes # 1.8 10*3/uL (1.4-4.0); Lymphocytes % 17.1 % (21.3-54.2); Mean Corpuscular HGB Conc 30.4 GM/DL (32-36); Mean Platelet Volume 10.4 FL (9.6-12.0); Monocytes % 7.4 % (1.7-12.7); Neutrophils % 74.6 % (38.7-73.9); Platelet Count 108 T/CUMM (130-400); Red Blood Count 3.69 MC/CUMM (3.8-5.5); Red Cell Distribution Width 18.8 % (9.3-17.3); White Blood Count 10.4 T/CUMM (4-12)
[2021-01-05 00:59] LABS: Alanine Aminotransferase 22 U/L (13-56); Albumin 2.4 G/DL (3.4-5.0); Alkaline Phosphatase 79 U/L (45-117); Aspartate Amino Transferase 32 U/L (0-37); Bilirubin,Total < 0.39 MG/DL (0.2-1.0); Blood Urea Nitrogen 22 MG/DL (7-18); Calcium 8.6 MG/DL (8.5-10.1); Carbon Dioxide 25 MMOL/L (21-32); Estimated Glom Filtration Rate 33 ML/MIN; Glucose 105 MG/DL (74-106); HDL Cholesterol 66 MG/DL (40-60); Osmolality,Calculated 277.7 MOS/KG (273-304); Potassium 3.7 MMOL/L (3.5-5.1); Sodium 138 MMOL/L (136-145); Triglycerides 59 MG/DL (2-150); VLDL CHOLESTEROL 11.8 MG/DL
[2021-01-05] MEDS: CLINDAMYCIN INJ 600 MG in PREMIX 1 EACH IV SCH ×4 (03:04→21:33)
[2021-01-05 04:05] LABS: Hypochromasia 1+; Microcytosis 1+; Ovalocytes Few; Platelet Estimate Decreased
[2021-01-05] MEDS: HEPARIN 5,000 UNIT/1 ML VIAL SUBCUT SCH ×3 (04:15→20:53)
[2021-01-05] MEDS ORDERED: ASPIRIN EC 81 MG TABLET PO SCH (09:00)
[2021-01-05] MEDS ORDERED: METOPROLOL SUCCINATE XL 50 MG TABLET PO SCH (09:00)
[2021-01-05] MEDS ORDERED: PANTOPRAZOLE 40 MG TABLET PO SCH (09:00)
[2021-01-05] MEDS: hydrALAZINE 10 MG TABLET PEG SCH ×3 (10:04→21:30)
[2021-01-05] MEDS: METOPROLOL SUCCINATE XL 50 MG TABLET PO SCH ×2 (10:04→21:40)
[2021-01-05] MEDS: ISOSORBIDE MONONITRATE 30 MG TABLET PO SCH (10:04)
[2021-01-05] MEDS: busPIRone 15 MG TABLET PEG SCH ×2 (10:04→21:32)
[2021-01-05] MEDS: AMIODARONE 200 MG TABLET PEG SCH (10:04)
[2021-01-05] MEDS: allopurinoL 300 MG TABLET PEG SCH (10:06)
[2021-01-05] MEDS ORDERED: MAGNESIUM SULF RIDER 2 GM/50 ML PREMIX IV ONE (11:37)
[2021-01-05] MEDS ORDERED: ENOXAPARIN 30 MG/0.3 ML SYRINGE SUBCUT SCH (15:00)
[2021-01-05] MEDS: GABAPENTIN 100 MG CAPSULE PEG SCH (21:31)
[2021-01-05] MEDS: ROSUVASTATIN 20 MG TABLET PEG SCH (21:31)
[2021-01-06] MEDS: CLINDAMYCIN INJ 600 MG in PREMIX 1 EACH IV SCH ×4 (03:13→21:55)
[2021-01-06] MEDS: HEPARIN 5,000 UNIT/1 ML VIAL SUBCUT SCH ×4 (04:52→21:55)
[2021-01-06 05:14] LABS: Calcium 8.4 MG/DL (8.5-10.1); Osmolality,Calculated 283.7 MOS/KG (273-304); Potassium 3.2 MMOL/L (3.5-5.1)
[2021-01-06] MEDS: ONDANSETRON 4 MG/2 ML VIAL IV PRN (06:29)
[2021-01-06] MEDS: METOPROLOL SUCCINATE XL 25 MG TABLET PO SCH ×2 (09:02→20:54)
[2021-01-06] MEDS: busPIRone 15 MG TABLET PEG SCH ×2 (09:02→21:55)
[2021-01-06] MEDS: AMIODARONE 200 MG TABLET PEG SCH (09:02)
[2021-01-06] MEDS: PANTOPRAZOLE 40 MG VIAL IV SCH (09:03)
[2021-01-06] MEDS: ISOSORBIDE MONONITRATE 30 MG TABLET PO SCH (09:03)
[2021-01-06] MEDS: ASPIRIN CHEW 81 MG TABLET PO SCH (09:05)
[2021-01-06] MEDS: allopurinoL 300 MG TABLET PEG SCH (09:05)
[2021-01-06] MEDS ORDERED: DOBUTamine 500 MG/250 ML PREMIX IV SCH (13:30)
[2021-01-06] MEDS: GABAPENTIN 100 MG CAPSULE PEG SCH (21:55)
[2021-01-06] MEDS: ROSUVASTATIN 20 MG TABLET PEG SCH (21:56)
[2021-01-07] MEDS: CLINDAMYCIN INJ 600 MG in PREMIX 1 EACH IV SCH ×4 (04:06→21:40)
[2021-01-07] MEDS: HEPARIN 5,000 UNIT/1 ML VIAL SUBCUT SCH ×3 (04:06→21:40)
[2021-01-07 05:45] LABS: Basophils % 0.2 % (0.0-0.8); Eosinophils % 0.7 % (0.00-10.9); Hematocrit 33.6 VOL% (35.7-47.0); Hemoglobin 10.1 GM/DL (12.0-16.0); Immature Granulocytes % 0.3 %; Immature Granulocytes Absolute 0.02 #; Lymphocytes # 1.7 10*3/uL (1.4-4.0); Lymphocytes % 28.5 % (21.3-54.2); Mean Corpuscular HGB Conc 30.1 GM/DL (32-36); Mean Corpuscular Volume 104.7 FL (87-102); Mean Platelet Volume 11.3 FL (9.6-12.0); Monocytes % 9.6 % (1.7-12.7); Neutrophils % 60.7 % (38.7-73.9); Platelet Count 112 T/CUMM (130-400); Red Blood Count 3.21 MC/CUMM (3.8-5.5); Red Cell Distribution Width 18.7 % (9.3-17.3); White Blood Count 5.8 T/CUMM (4-12)
[2021-01-07] MEDS: ONDANSETRON 4 MG/2 ML VIAL IV PRN (05:46)
[2021-01-07 06:04] LABS: Hypochromasia Slight; Microcytosis 1+; Ovalocytes Slight
[2021-01-07 06:07] LABS: Albumin 2.3 G/DL (3.4-5.0); Bilirubin,Total 0.4 MG/DL (0.2-1.0); Calcium 8.3 MG/DL (8.5-10.1); Osmolality,Calculated 270.1 MOS/KG (273-304); Potassium 3.2 MMOL/L (3.5-5.1); Total Protein 5.7 G/DL (6.4-8.2)
[2021-01-07] MEDS ORDERED: POTASSIUM CHLORIDE 20 MEQ/15 ML UDCUP PER TUBE ONE (08:27)
[2021-01-07] MEDS: allopurinoL 300 MG TABLET PEG SCH (09:43)
[2021-01-07] MEDS: METOPROLOL SUCCINATE XL 25 MG TABLET PO SCH ×2 (09:43→21:40)
[2021-01-07] MEDS: PANTOPRAZOLE 40 MG VIAL IV SCH (09:43)
[2021-01-07] MEDS: busPIRone 15 MG TABLET PEG SCH ×2 (09:43→21:40)
[2021-01-07] MEDS: ASPIRIN CHEW 81 MG TABLET PO SCH (09:43)
[2021-01-07] MEDS: AMIODARONE 200 MG TABLET PEG SCH (09:45)
[2021-01-07] MEDS ORDERED: POTASSIUM PHOSPHATE 15 MMOL in SODIUM CHLORIDE 0.9% 100 ML IV ONE (10:00)
[2021-01-07] MEDS: ISOSORBIDE MONONITRATE 30 MG TABLET PO SCH (11:53)
[2021-01-07] MEDS ORDERED: DOCUSATE SODIUM 100 MG CAPSULE PO SCH (21:00)
[2021-01-07] MEDS: FERROUS SULFATE 325 MG TABLET PO SCH (21:39)
[2021-01-07] MEDS: GABAPENTIN 100 MG CAPSULE PEG SCH (21:39)
[2021-01-07] MEDS: ROSUVASTATIN 20 MG TABLET PEG SCH (21:40)
[2021-01-08 03:20] LABS: Basophils % 0.2 % (0.0-0.8); Eosinophils # 0.1 10*3/uL (0.0-0.87); Eosinophils % 1.2 % (0.00-10.9); Hemoglobin 9.8 GM/DL (12.0-16.0); Immature Granulocytes % 0.4 %; Immature Granulocytes Absolute 0.02 #; Lymphocytes # 1.6 10*3/uL (1.4-4.0); Lymphocytes % 31.3 % (21.3-54.2); Mean Corpuscular HGB Conc 29.7 GM/DL (32-36); Mean Corpuscular Volume 106.5 FL (87-102); Mean Platelet Volume 10.7 FL (9.6-12.0); Monocytes % 9.2 % (1.7-12.7); Neutrophils % 57.7 % (38.7-73.9); Platelet Count 137 T/CUMM (130-400); Red Cell Distribution Width 18.7 % (9.3-17.3)
[2021-01-08 03:47] LABS: Calcium 8.4 MG/DL (8.5-10.1); Osmolality,Calculated 280.5 MOS/KG (273-304); Potassium 3.1 MMOL/L (3.5-5.1)
[2021-01-08 03:49] LABS: Hypochromasia Slight
[2021-01-08 03:50] LABS: Microcytosis 1+; Platelet Estimate Normal
[2021-01-08 04:20] LABS: HIV Antigen/Antibody Result Nonreactive (Nonreactive); Hepatitis B Surface Ag Quant < 0.10 Index; Hepatitis B Surface Ag Result Non-Reactive (NonReactive); Hepatitis C Virus Ab Quant 0.11 Index; Hepatitis C Virus Ab Result Non-Reactive (NonReactive)
[2021-01-08] MEDS: HEPARIN 5,000 UNIT/1 ML VIAL SUBCUT SCH ×2 (04:27→11:38)
[2021-01-08] MEDS: CLINDAMYCIN INJ 600 MG in PREMIX 1 EACH IV SCH ×3 (04:27→15:34)
[2021-01-08] MEDS: AMIODARONE 200 MG TABLET PEG SCH (08:23)
[2021-01-08] MEDS: ISOSORBIDE MONONITRATE 30 MG TABLET PO SCH (08:24)
[2021-01-08] MEDS: busPIRone 15 MG TABLET PEG SCH (08:24)
[2021-01-08] MEDS: allopurinoL 300 MG TABLET PEG SCH (08:24)
[2021-01-08] MEDS: ASPIRIN CHEW 81 MG TABLET PO SCH (08:24)
[2021-01-08] MEDS: FERROUS SULFATE 325 MG TABLET PO SCH (08:24)
[2021-01-08] MEDS: PANTOPRAZOLE 40 MG VIAL IV SCH (08:24)
[2021-01-08] MEDS: METOPROLOL SUCCINATE XL 25 MG TABLET PO SCH (09:10)
[2021-01-08] MEDS: ONDANSETRON 4 MG/2 ML VIAL IV PRN (10:36)
[2021-01-08 16:06] VITALS: BP 138/62
== END 2021-01-08 17:04 | disposition hospice, home (50) | DRG 177 ==
LOC: EDBD → EDUNIT# → N.ED 15:33 → N.EDINP 19:08 → SUATTDRO 19:08 → N.CC 21:02 → N.TELES 01-07 16:26
PROVIDERS: ADMIT Internal Medicine; ATTEND Internal Medicine

== ENCOUNTER 2021-01-21 19:51 | Inpatient (IN) ==
[2021-01-21 20:55] LABS: Basophils % 0.5 % (0.0-0.8); Eosinophils % 0.7 % (0.00-10.9); Hematocrit 49.3 VOL% (35.7-47.0); Immature Granulocytes % 0.3 %; Immature Granulocytes Absolute 0.02 #; Lymphocytes % 34.8 % (21.3-54.2); Mean Corpuscular HGB Conc 30.8 GM/DL (32-36); Mean Corpuscular Volume 102.1 FL (87-102); Mean Platelet Volume 11.3 FL (9.6-12.0); Monocytes % 7.5 % (1.7-12.7); Neutrophils % 56.2 % (38.7-73.9); Platelet Count 168 T/CUMM (130-400); Red Blood Count 4.83 MC/CUMM (3.8-5.5); Red Cell Distribution Width 19.8 % (9.3-17.3); White Blood Count 5.8 T/CUMM (4-12)
[2021-01-21 20:57] LABS: Hemoglobin 15.2 GM/DL (12.0-16.0)
[2021-01-21 21:36] LABS: Albumin 3.3 G/DL (3.4-5.0); Bilirubin,Total 0.4 MG/DL (0.2-1.0); CKMB % 1.2 %; Calcium 9.6 MG/DL (8.5-10.1); Osmolality,Calculated 278.5 MOS/KG (273-304); Potassium 3.3 MMOL/L (3.5-5.1); Thyroid Stimulating Hormone 3.31 uIU/ml (0.358-3.74)
[2021-01-21 21:39] LABS: High Sensitive Troponin I* 223.2 ng/L (0-54)
[2021-01-21] MEDS ORDERED: POTASSIUM CHLORIDE 20 MEQ TABLET PO STA (22:42)
[2021-01-21] MEDS ORDERED: diphenhydrAMINE CAP 25 MG CAPSULE PO PRN (22:43)
[2021-01-21] MEDS ORDERED: DOCUSATE SODIUM 100 MG CAPSULE PO PRN (22:43)
[2021-01-21] MEDS ORDERED: hydrALAZINE 20 MG/1 ML VIAL IV PRN (22:43)
[2021-01-21] MEDS ORDERED: NICOTINE 21 MG/24 HR PATCH TRANSDERM PRN (22:43)
[2021-01-21] MEDS ORDERED: DEXTROSE 50% 25 GM/50 ML VIAL IV PRN (22:43)
[2021-01-21] MEDS ORDERED: ZALEPLON 5 MG CAPSULE PO PRN (22:43)
[2021-01-21] MEDS ORDERED: guaiFENesin/DM ER 600-30 MG TABLET PO PRN (22:43)
[2021-01-21] MEDS ORDERED: GLUCAGON 1 MG VIAL IM PRN (22:43)
[2021-01-22 01:03] LABS: Calcium 9.5 MG/DL (8.5-10.1); Osmolality,Calculated 276.7 MOS/KG (273-304); Potassium 3.3 MMOL/L (3.5-5.1)
[2021-01-22 01:40] LABS: Basophils % 0.3 % (0.0-0.8); Eosinophils % 0.6 % (0.00-10.9); Hemoglobin 14.3 GM/DL (12.0-16.0); Immature Granulocytes % 0.2 %; Immature Granulocytes Absolute 0.01 #; Lymphocytes # 1.8 10*3/uL (1.4-4.0); Lymphocytes % 27.9 % (21.3-54.2); Mean Corpuscular HGB Conc 30.4 GM/DL (32-36); Mean Platelet Volume 11.7 FL (9.6-12.0); Monocytes % 8.1 % (1.7-12.7); Neutrophils % 62.9 % (38.7-73.9); Platelet Count 170 T/CUMM (130-400); Red Blood Count 4.52 MC/CUMM (3.8-5.5); Red Cell Distribution Width 18.7 % (9.3-17.3); White Blood Count 6.4 T/CUMM (4-12)
[2021-01-22] MEDS ORDERED: POTASSIUM CHLORIDE 20 MEQ TABLET PO ONE (06:36)
[2021-01-22] MEDS: METOPROLOL SUCCINATE XL 25 MG TABLET PO SCH ×2 (09:43→20:47)
[2021-01-22] MEDS: allopurinoL 300 MG TABLET PEG SCH (09:43)
[2021-01-22] MEDS: AMIODARONE 200 MG TABLET PO SCH (09:43)
[2021-01-22] MEDS: HEPARIN 5,000 UNIT/1 ML VIAL SUBCUT SCH ×2 (09:43→20:52)
[2021-01-22] MEDS: ASPIRIN EC 81 MG TABLET PO SCH (09:43)
[2021-01-22] MEDS: PANTOPRAZOLE 40 MG TABLET PO SCH (09:43)
[2021-01-22] MEDS ORDERED: NITROGLYCERIN SL 0.4 MG TABLET SL PRN (09:52)
[2021-01-22] MEDS: ONDANSETRON 4 MG/2 ML VIAL IV PRN (15:21)
[2021-01-22] MEDS: ACETAMINOPHEN 325 MG TABLET PO PRN ×2 (15:29→20:48)
[2021-01-22] MEDS: THIAMINE IV SCH (16:02)
[2021-01-22] MEDS: SODIUM CHLORIDE IV SCH (16:02)
[2021-01-22] MEDS: [UNRECOGNIZED DRUG - OTHER] IV SCH (16:02)
[2021-01-22] MEDS: MULTIVITAMIN IV SCH (16:02)
[2021-01-22] MEDS: SUCRALFATE 1 GM/10 ML UDCUP PEG SCH (17:19)
[2021-01-22] MEDS: GABAPENTIN 100 MG CAPSULE PEG SCH (20:47)
[2021-01-23] MEDS: SUCRALFATE 1 GM/10 ML UDCUP PEG SCH ×4 (00:47→18:15)
[2021-01-23] MEDS: ASPIRIN EC 81 MG TABLET PO SCH (09:43)
[2021-01-23] MEDS: METOPROLOL SUCCINATE XL 25 MG TABLET PO SCH ×2 (09:43→20:55)
[2021-01-23] MEDS: allopurinoL 300 MG TABLET PEG SCH (09:43)
[2021-01-23] MEDS: PANTOPRAZOLE 40 MG TABLET PO SCH (09:43)
[2021-01-23] MEDS: HEPARIN 5,000 UNIT/1 ML VIAL SUBCUT SCH ×2 (09:43→20:56)
[2021-01-23] MEDS: AMIODARONE 200 MG TABLET PO SCH (09:43)
[2021-01-23] MEDS ORDERED: POTASSIUM CHLORIDE 20 MEQ TABLET PO ONE (09:53)
[2021-01-23] MEDS: ACETAMINOPHEN 325 MG TABLET PO PRN (10:43)
[2021-01-23 13:05] LABS: Basophils % 0.7 % (0.0-0.8); Eosinophils # 0.1 10*3/uL (0.0-0.87); Eosinophils % 1.9 % (0.00-10.9); Hematocrit 44.4 VOL% (35.7-47.0); Hemoglobin 13.4 GM/DL (12.0-16.0); Immature Granulocytes % 0.5 %; Immature Granulocytes Absolute 0.03 #; Lymphocytes # 2.5 10*3/uL (1.4-4.0); Lymphocytes % 43.2 % (21.3-54.2); Mean Corpuscular HGB Conc 30.2 GM/DL (32-36); Mean Corpuscular Volume 104.7 FL (87-102); Mean Platelet Volume 9.8 FL (9.6-12.0); Monocytes % 8.3 % (1.7-12.7); Neutrophils % 45.4 % (38.7-73.9); Platelet Count 146 T/CUMM (130-400); Red Blood Count 4.24 MC/CUMM (3.8-5.5); Red Cell Distribution Width 19.3 % (9.3-17.3); White Blood Count 5.7 T/CUMM (4-12)
[2021-01-23 13:29] LABS: Calcium 9.4 MG/DL (8.5-10.1); Osmolality,Calculated 282.7 MOS/KG (273-304)
[2021-01-23 13:31] LABS: Folate 13.77 NG/ML (5.38-24.0)
[2021-01-23 13:31] LABS: Risk Ratio 1.57; VLDL CHOLESTEROL 20.8 MG/DL
[2021-01-23] MEDS ORDERED: HEPARIN 10,000 UNIT/10 ML VIAL IV SCH (15:00)
[2021-01-23] MEDS: THIAMINE IV SCH (16:22)
[2021-01-23] MEDS: [UNRECOGNIZED DRUG - OTHER] IV SCH (16:22)
[2021-01-23] MEDS: MULTIVITAMIN IV SCH (16:22)
[2021-01-23] MEDS: SODIUM CHLORIDE IV SCH (16:22)
[2021-01-23] MEDS: GABAPENTIN 100 MG CAPSULE PEG SCH (20:55)
[2021-01-24] MEDS: SUCRALFATE 1 GM/10 ML UDCUP PEG SCH ×4 (00:55→18:40)
[2021-01-24 05:58] LABS: Basophils % 0.9 % (0.0-0.8); Eosinophils # 0.1 10*3/uL (0.0-0.87); Eosinophils % 2.1 % (0.00-10.9); Hematocrit 40.8 VOL% (35.7-47.0); Hemoglobin 12.3 GM/DL (12.0-16.0); Immature Granulocytes % 0.4 %; Immature Granulocytes Absolute 0.02 #; Lymphocytes # 1.9 10*3/uL (1.4-4.0); Lymphocytes % 40.3 % (21.3-54.2); Mean Corpuscular HGB Conc 30.1 GM/DL (32-36); Monocytes % 7.7 % (1.7-12.7); Neutrophils % 48.6 % (38.7-73.9); Platelet Count 131 T/CUMM (130-400); Red Blood Count 3.85 MC/CUMM (3.8-5.5); Red Cell Distribution Width 19.1 % (9.3-17.3); White Blood Count 4.7 T/CUMM (4-12)
[2021-01-24 06:11] LABS: Calcium 8.3 MG/DL (8.5-10.1); Osmolality,Calculated 271.2 MOS/KG (273-304); Potassium 3.8 MMOL/L (3.5-5.1)
[2021-01-24] MEDS: ONDANSETRON 4 MG/2 ML VIAL IV PRN (07:48)
[2021-01-24] MEDS: HEPARIN 5,000 UNIT/1 ML VIAL SUBCUT SCH ×2 (09:26→21:39)
[2021-01-24] MEDS: allopurinoL 300 MG TABLET PEG SCH (09:26)
[2021-01-24] MEDS: ASPIRIN EC 81 MG TABLET PO SCH (09:26)
[2021-01-24] MEDS: PANTOPRAZOLE 40 MG TABLET PO SCH (09:26)
[2021-01-24] MEDS: AMIODARONE 200 MG TABLET PO SCH (10:39)
[2021-01-24] MEDS: METOPROLOL SUCCINATE XL 25 MG TABLET PO SCH (10:39)
[2021-01-24] MEDS: THIAMINE IV SCH (10:51)
[2021-01-24] MEDS: MULTIVITAMIN IV SCH (10:51)
[2021-01-24] MEDS: [UNRECOGNIZED DRUG - OTHER] IV SCH (10:51)
[2021-01-24] MEDS: SODIUM CHLORIDE IV SCH ×2 (10:51→22:15)
[2021-01-24] MEDS: ACETAMINOPHEN 325 MG TABLET PO PRN ×2 (10:51→15:31)
[2021-01-24] MEDS ORDERED: ALBUMIN 25% 25 GM/100 ML VIAL IV ONE (17:00)
[2021-01-24] MEDS: GABAPENTIN 100 MG CAPSULE PEG SCH (21:38)
[2021-01-24] MEDS: DEXTROSE 10% IV SCH (22:15)
[2021-01-25] MEDS: SUCRALFATE 1 GM/10 ML UDCUP PEG SCH ×4 (02:47→19:37)
[2021-01-25 06:26] LABS: Basophils % 0.6 % (0.0-0.8); Eosinophils # 0.1 10*3/uL (0.0-0.87); Eosinophils % 1.5 % (0.00-10.9); Hematocrit 37.8 VOL% (35.7-47.0); Hemoglobin 11.6 GM/DL (12.0-16.0); Immature Granulocytes % 0.3 %; Immature Granulocytes Absolute 0.01 #; Lymphocytes # 1.5 10*3/uL (1.4-4.0); Lymphocytes % 45.8 % (21.3-54.2); Mean Corpuscular HGB Conc 30.7 GM/DL (32-36); Mean Platelet Volume 10.8 FL (9.6-12.0); Neutrophils % 42.8 % (38.7-73.9); Platelet Count 111 T/CUMM (130-400); Red Cell Distribution Width 18.7 % (9.3-17.3); White Blood Count 3.2 T/CUMM (4-12)
[2021-01-25 06:58] LABS: Anisocytosis 1+; Platelet Estimate Adequate
[2021-01-25 07:26] LABS: Calcium 8.1 MG/DL (8.5-10.1); Osmolality,Calculated 262.9 MOS/KG (273-304); Potassium 3.3 MMOL/L (3.5-5.1)
[2021-01-25] MEDS ORDERED: POTASSIUM CHLORIDE 20 MEQ/15 ML UDCUP PER TUBE ONE (08:28)
[2021-01-25] MEDS: PANTOPRAZOLE 40 MG TABLET PO SCH (08:38)
[2021-01-25] MEDS: allopurinoL 300 MG TABLET PEG SCH (08:38)
[2021-01-25] MEDS: ASPIRIN EC 81 MG TABLET PO SCH (08:38)
[2021-01-25] MEDS: POLYETHYLENE GLYCOL POWDER 17 GM PACK PO SCH (08:43)
[2021-01-25] MEDS: MIDODRINE 5 MG TABLET PO SCH ×3 (10:33→22:16)
[2021-01-25] MEDS: SODIUM CHLORIDE IV SCH ×2 (10:34→23:00)
[2021-01-25] MEDS: THIAMINE IV SCH (10:34)
[2021-01-25] MEDS: MULTIVITAMIN IV SCH (10:34)
[2021-01-25] MEDS: [UNRECOGNIZED DRUG - OTHER] IV SCH (10:34)
[2021-01-25] MEDS: HEPARIN 5,000 UNIT/1 ML VIAL SUBCUT SCH ×2 (10:40→22:03)
[2021-01-25] MEDS ORDERED: SIMETHICONE CHEW 125 MG TABLET PO PRN (11:46)
[2021-01-25] MEDS: LIDOCAINE 5% PATCH TRANSDERM SCH (15:52)
[2021-01-25] MEDS: ONDANSETRON 4 MG/2 ML VIAL IV PRN (22:03)
[2021-01-25] MEDS: GABAPENTIN 100 MG CAPSULE PEG SCH (22:04)
[2021-01-25] MEDS: METOPROLOL SUCCINATE XL 25 MG TABLET PO SCH (22:05)
[2021-01-25] MEDS: ACETAMINOPHEN 325 MG TABLET PO PRN (22:16)
[2021-01-25] MEDS: DEXTROSE 10% IV SCH (23:00)
[2021-01-26] MEDS: SUCRALFATE 1 GM/10 ML UDCUP PEG SCH ×4 (01:20→19:26)
[2021-01-26 05:55] LABS: Albumin 2.3 G/DL (3.4-5.0); Bilirubin,Total 0.5 MG/DL (0.2-1.0); Calcium 8.1 MG/DL (8.5-10.1); Osmolality,Calculated 257.5 MOS/KG (273-304); Potassium 3.6 MMOL/L (3.5-5.1)
[2021-01-26] MEDS: MIDODRINE 5 MG TABLET PO SCH ×2 (10:06→15:52)
[2021-01-26] MEDS: ASPIRIN EC 81 MG TABLET PO SCH (10:06)
[2021-01-26] MEDS: allopurinoL 300 MG TABLET PEG SCH (10:07)
[2021-01-26] MEDS: AMIODARONE 200 MG TABLET PO SCH (10:07)
[2021-01-26] MEDS: PANTOPRAZOLE 40 MG TABLET PO SCH (10:07)
[2021-01-26] MEDS: METOPROLOL SUCCINATE XL 25 MG TABLET PO SCH (10:08)
[2021-01-26] MEDS: HEPARIN 5,000 UNIT/1 ML VIAL SUBCUT SCH (10:08)
[2021-01-26] MEDS: POLYETHYLENE GLYCOL POWDER 17 GM PACK PO SCH (10:09)
[2021-01-26] MEDS: LIDOCAINE 5% PATCH TRANSDERM SCH (10:29)
[2021-01-26] MEDS: SODIUM CHLORIDE IV SCH (11:40)
[2021-01-26] MEDS: MULTIVITAMIN IV SCH (11:40)
[2021-01-26] MEDS: THIAMINE IV SCH (11:40)
[2021-01-26] MEDS: [UNRECOGNIZED DRUG - OTHER] IV SCH (11:40)
[2021-01-26 16:48] VITALS: BP 87/53
[2021-01-26] MEDS ORDERED: METOPROLOL SUCCINATE XL 25 MG TABLET PO SCH (21:00)
== END 2021-01-26 18:05 | disposition hospice, home (50) | DRG 393 ==
LOC: EDUNIT# → EDBD → N.EDINP 19:51 → N.ED 19:51 → SUATTDRO 22:43 → N.EDINP 23:46 → N.TELEN 23:56 → SUATTDRO 01-23 12:38
PROVIDERS: ADMIT Internal Medicine; ATTEND Internal Medicine

== ENCOUNTER 2021-02-14 09:40 | Inpatient (IN) ==
[2021-02-14] MEDS ORDERED: NALOXONE 0.4 MG/ML VIAL IV STA (10:01)
[2021-02-14] MEDS ORDERED: NALOXONE 0.4 MG/ML VIAL ONE (10:01)
[2021-02-14] MEDS ORDERED: DEXTROSE 50% 25 GM/50 ML SYRINGE IV STA (10:01)
[2021-02-14] MEDS ORDERED: DEXTROSE 50% 25 GM/50 ML SYRINGE IV ONE (10:02)
[2021-02-14 10:33] LABS: Basophils % 0.6 % (0.0-0.8); Eosinophils # 0.1 10*3/uL (0.0-0.87); Eosinophils % 2.4 % (0.00-10.9); Hematocrit 41.1 VOL% (35.7-47.0); Hemoglobin 12.7 GM/DL (12.0-16.0); Immature Granulocytes % 0.2 %; Immature Granulocytes Absolute 0.01 #; Lymphocytes % 38.6 % (21.3-54.2); Mean Corpuscular HGB Conc 30.9 GM/DL (32-36); Mean Corpuscular Volume 103.3 FL (87-102); Mean Platelet Volume 11.4 FL (9.6-12.0); Monocytes % 6.9 % (1.7-12.7); Neutrophils % 51.3 % (38.7-73.9); Platelet Count 130 T/CUMM (130-400); Red Blood Count 3.98 MC/CUMM (3.8-5.5); Red Cell Distribution Width 17.9 % (9.3-17.3); White Blood Count 5.1 T/CUMM (4-12)
[2021-02-14 10:37] LABS: Platelet Estimate Adequate
[2021-02-14 10:38] LABS: Anisocytosis 2+; Macrocytosis 1+
[2021-02-14 10:39] LABS: Albumin 2.6 G/DL (3.4-5.0); Bilirubin,Total 0.4 MG/DL (0.2-1.0); Calcium 8.6 MG/DL (8.5-10.1); Osmolality,Calculated 275.1 MOS/KG (273-304); Potassium 3.7 MMOL/L (3.5-5.1)
[2021-02-14] MEDS ORDERED: ONDANSETRON 4 MG/2 ML VIAL IV PRN (12:57)
[2021-02-14] MEDS ORDERED: GLUCAGON 1 MG VIAL IM PRN (12:57)
[2021-02-14] MEDS ORDERED: DEXTROSE 50% 25 GM/50 ML VIAL IV PRN (12:57)
[2021-02-14] MEDS ORDERED: NALOXONE 0.4 MG/ML VIAL IV PRN (13:33)
[2021-02-14] MEDS ORDERED: DEXTROSE 5% NACL 0.9% 1,000 ML IV SCH (14:00)
[2021-02-14] MEDS: HEPARIN 5,000 UNIT/1 ML VIAL SUBCUT SCH (14:19)
[2021-02-14 16:15] LABS: Albumin 2.6 G/DL (3.4-5.0); Bilirubin,Direct 0.21 MG/DL (0.0-0.20); Bilirubin,Indirect 0.2 MG/DL (0.0-1.0); Bilirubin,Total 0.4 MG/DL (0.2-1.0); Total Protein 6.4 G/DL (6.4-8.2)
[2021-02-14] MEDS: MIDODRINE 2.5 MG TABLET PO SCH ×2 (16:18→21:15)
[2021-02-14] MEDS ORDERED: HEPARIN 10,000 UNIT/10 ML VIAL IV SCH (18:30)
[2021-02-14 19:05] LABS: Hepatitis B Core IgM Quant < 0.05 Index; Hepatitis B Surface Ag Quant < 0.10 Index; Hepatitis B Surface Ag Result Non-Reactive (NonReactive); Hepatitis C Virus Ab Quant 0.02 Index; Hepatitis C Virus Ab Result Non-Reactive (NonReactive)
[2021-02-14] MEDS: SIMETHICONE CHEW 80 MG TABLET PO SCH (21:15)
[2021-02-14] MEDS: DOCUSATE SODIUM 100 MG CAPSULE PO SCH (21:15)
[2021-02-15] MEDS: HEPARIN 5,000 UNIT/1 ML VIAL SUBCUT SCH ×2 (01:13→16:17)
[2021-02-15 06:55] LABS: Calcium 8.3 MG/DL (8.5-10.1); Osmolality,Calculated 264.7 MOS/KG (273-304)
[2021-02-15 07:19] LABS: Basophils # 0.1 10*3/uL (0.0-0.2); Basophils % 2.3 % (0.0-0.8); Eosinophils # 0.2 10*3/uL (0.0-0.87); Eosinophils % 2.7 % (0.00-10.9); Hemoglobin 12.9 GM/DL (12.0-16.0); Immature Granulocytes Absolute 0.11 #; Lymphocytes # 1.9 10*3/uL (1.4-4.0); Lymphocytes % 34.6 % (21.3-54.2); Mean Corpuscular HGB Conc 31.5 GM/DL (32-36); Mean Corpuscular Volume 104.1 FL (87-102); Monocytes % 8.8 % (1.7-12.7); Neutrophils % 49.6 % (38.7-73.9); Red Blood Count 3.94 MC/CUMM (3.8-5.5); White Blood Count 5.6 T/CUMM (4-12)
[2021-02-15 07:21] LABS: Platelet Count 82 T/CUMM (130-400)
[2021-02-15 07:51] LABS: Band Neutrophils 4 % (0-10); Burr Cells Few; Eosinophils 2 % (0-10); Lymphocytes 42 % (20-55); Macrocytosis 2+; Metamyelocytes 1 %; Ovalocytes Few; Platelet Estimate Decreased; Segmented Neutrophils 43 % (50-85); Total Cells Counted 100
[2021-02-15 07:52] LABS: Anisocytosis 2+
[2021-02-15] MEDS ORDERED: VANCOMYCIN INJ 500 MG in SODIUM CHLORIDE 0.9% 250 ML IV PRN (08:38)
[2021-02-15] MEDS ORDERED: CLINDAMYCIN 300 MG CAPSULE PEG SCH (09:00)
[2021-02-15] MEDS: AMIODARONE 200 MG TABLET PO SCH (09:10)
[2021-02-15] MEDS: ASPIRIN EC 81 MG TABLET PO SCH (09:10)
[2021-02-15] MEDS: PANTOPRAZOLE 40 MG TABLET PO SCH (09:10)
[2021-02-15] MEDS: allopurinoL 300 MG TABLET PEG SCH (09:10)
[2021-02-15] MEDS: MIDODRINE 2.5 MG TABLET PO SCH ×3 (09:10→20:39)
[2021-02-15] MEDS ORDERED: VANCOMYCIN INJ 1,500 MG in SODIUM CHLORIDE 0.9% 500 ML IV ONE (10:00)
[2021-02-15] MEDS: MEROPENEM 500 MG in SODIUM CHLORIDE 0.9% 100 ML IV SCH (10:37)
[2021-02-15] MEDS: LACTULOSE 20 GM/30 ML UDCUP PO SCH ×2 (12:34→20:39)
[2021-02-15] MEDS: SIMETHICONE CHEW 80 MG TABLET PO SCH (20:39)
[2021-02-15] MEDS: DOCUSATE SODIUM 100 MG CAPSULE PO SCH (20:40)
[2021-02-16] MEDS: HEPARIN 5,000 UNIT/1 ML VIAL SUBCUT SCH ×2 (02:46→13:36)
[2021-02-16 06:44] LABS: Basophils % 0.9 % (0.0-0.8); Eosinophils # 0.1 10*3/uL (0.0-0.87); Eosinophils % 1.7 % (0.00-10.9); Hematocrit 34.7 VOL% (35.7-47.0); Hemoglobin 10.4 GM/DL (12.0-16.0); Immature Granulocytes % 0.3 %; Immature Granulocytes Absolute 0.01 #; Lymphocytes # 1.5 10*3/uL (1.4-4.0); Lymphocytes % 41.8 % (21.3-54.2); Mean Corpuscular Volume 104.5 FL (87-102); Mean Platelet Volume 11.9 FL (9.6-12.0); Monocytes % 12.7 % (1.7-12.7); Neutrophils % 42.6 % (38.7-73.9); Red Blood Count 3.32 MC/CUMM (3.8-5.5); Red Cell Distribution Width 17.5 % (9.3-17.3); White Blood Count 3.5 T/CUMM (4-12)
[2021-02-16 06:47] LABS: Platelet Count 102 T/CUMM (130-400)
[2021-02-16 07:11] LABS: Calcium 8.3 MG/DL (8.5-10.1); Osmolality,Calculated 281.5 MOS/KG (273-304); Potassium 3.3 MMOL/L (3.5-5.1)
[2021-02-16] MEDS ORDERED: POTASSIUM CHLORIDE 20 MEQ TABLET PO ONE (08:00)
[2021-02-16 08:37] LABS: Folate 8.38 NG/ML (5.38-24.0)
[2021-02-16] MEDS: LACTULOSE 20 GM/30 ML UDCUP PO SCH ×2 (10:33→21:02)
[2021-02-16] MEDS: AMIODARONE 200 MG TABLET PO SCH (10:33)
[2021-02-16] MEDS: MIDODRINE 2.5 MG TABLET PO SCH ×3 (10:34→21:02)
[2021-02-16] MEDS: PANTOPRAZOLE 40 MG TABLET PO SCH (10:34)
[2021-02-16] MEDS: MEROPENEM 500 MG in SODIUM CHLORIDE 0.9% 100 ML IV SCH (10:34)
[2021-02-16] MEDS: ASPIRIN EC 81 MG TABLET PO SCH (10:34)
[2021-02-16] MEDS: allopurinoL 300 MG TABLET PEG SCH (10:34)
[2021-02-16] MEDS: METOCLOPRAMIDE 10 MG/10 ML UDCUP PEG SCH ×2 (17:53→21:02)
[2021-02-16] MEDS: SIMETHICONE CHEW 80 MG TABLET PO SCH (21:02)
[2021-02-16] MEDS: DOCUSATE SODIUM 100 MG CAPSULE PO SCH (21:03)
[2021-02-17] MEDS: HEPARIN 5,000 UNIT/1 ML VIAL SUBCUT SCH ×2 (01:22→12:44)
[2021-02-17 07:02] LABS: Basophils % 0.4 % (0.0-0.8); Eosinophils # 0.1 10*3/uL (0.0-0.87); Eosinophils % 1.8 % (0.00-10.9); Hematocrit 37.3 VOL% (35.7-47.0); Hemoglobin 11.7 GM/DL (12.0-16.0); Immature Granulocytes % 0.4 %; Immature Granulocytes Absolute 0.02 #; Lymphocytes # 1.7 10*3/uL (1.4-4.0); Lymphocytes % 32.2 % (21.3-54.2); Mean Corpuscular HGB Conc 31.4 GM/DL (32-36); Mean Corpuscular Volume 103.9 FL (87-102); Mean Platelet Volume 11.2 FL (9.6-12.0); Monocytes % 7.8 % (1.7-12.7); Neutrophils % 57.4 % (38.7-73.9); Platelet Count 100 T/CUMM (130-400); Red Blood Count 3.59 MC/CUMM (3.8-5.5); Red Cell Distribution Width 17.8 % (9.3-17.3); White Blood Count 5.1 T/CUMM (4-12)
[2021-02-17 07:18] LABS: Hypochromasia Slight; Microcytosis Slight; Platelet Estimate Decreased
[2021-02-17 07:33] LABS: Calcium 8.5 MG/DL (8.5-10.1); Osmolality,Calculated 287.4 MOS/KG (273-304)
[2021-02-17] MEDS: METOCLOPRAMIDE 10 MG/10 ML UDCUP PEG SCH ×4 (08:16→20:57)
[2021-02-17] MEDS: LACTULOSE 20 GM/30 ML UDCUP PO SCH ×2 (08:17→20:57)
[2021-02-17] MEDS: AMIODARONE 200 MG TABLET PO SCH (08:17)
[2021-02-17] MEDS: ASPIRIN EC 81 MG TABLET PO SCH (08:17)
[2021-02-17] MEDS: allopurinoL 300 MG TABLET PEG SCH (08:17)
[2021-02-17] MEDS: MIDODRINE 2.5 MG TABLET PO SCH ×3 (08:17→20:56)
[2021-02-17] MEDS: MEROPENEM 500 MG in SODIUM CHLORIDE 0.9% 100 ML IV SCH (08:17)
[2021-02-17] MEDS: PANTOPRAZOLE 40 MG TABLET PO SCH (08:17)
[2021-02-17 17:05] LABS: Risk Ratio 1.68; VLDL CHOLESTEROL 19.8 MG/DL
[2021-02-17] MEDS ORDERED: POTASSIUM CHLORIDE 20 MEQ/15 ML UDCUP PER TUBE ONE (18:00)
[2021-02-17] MEDS: SIMETHICONE CHEW 80 MG TABLET PO SCH (20:56)
[2021-02-17] MEDS: DOCUSATE SODIUM 100 MG CAPSULE PO SCH (20:57)
[2021-02-18] MEDS: HEPARIN 5,000 UNIT/1 ML VIAL SUBCUT SCH ×2 (01:50→12:14)
[2021-02-18 05:49] LABS: Basophils % 0.2 % (0.0-0.8); Eosinophils # 0.1 10*3/uL (0.0-0.87); Eosinophils % 1.3 % (0.00-10.9); Hematocrit 34.5 VOL% (35.7-47.0); Hemoglobin 10.5 GM/DL (12.0-16.0); Immature Granulocytes % 0.4 %; Immature Granulocytes Absolute 0.02 #; Lymphocytes # 1.3 10*3/uL (1.4-4.0); Mean Corpuscular HGB Conc 30.4 GM/DL (32-36); Mean Corpuscular Volume 102.7 FL (87-102); Mean Platelet Volume 12.3 FL (9.6-12.0); Monocytes % 12.3 % (1.7-12.7); Neutrophils % 57.8 % (38.7-73.9); Platelet Count 109 T/CUMM (130-400); Red Blood Count 3.36 MC/CUMM (3.8-5.5); Red Cell Distribution Width 17.8 % (9.3-17.3); White Blood Count 4.8 T/CUMM (4-12)
[2021-02-18 06:02] LABS: Calcium 8.5 MG/DL (8.5-10.1); Osmolality,Calculated 279.7 MOS/KG (273-304); Potassium 2.9 MMOL/L (3.5-5.1)
[2021-02-18] MEDS: METOCLOPRAMIDE 10 MG/10 ML UDCUP PEG SCH ×2 (08:59→12:14)
[2021-02-18] MEDS: LACTULOSE 20 GM/30 ML UDCUP PO SCH (08:59)
[2021-02-18] MEDS: MIDODRINE 2.5 MG TABLET PO SCH (08:59)
[2021-02-18] MEDS: allopurinoL 300 MG TABLET PEG SCH (08:59)
[2021-02-18] MEDS: AMIODARONE 200 MG TABLET PO SCH (08:59)
[2021-02-18] MEDS ORDERED: POTASSIUM CHLORIDE 20 MEQ/15 ML UDCUP PO ONE (09:00)
[2021-02-18] MEDS ORDERED: ASPIRIN CHEW 81 MG TABLET PO SCH (09:00)
[2021-02-18] MEDS ORDERED: OMEPRAZOLE ODT 20 MG TABLET PER TUBE SCH (09:00)
[2021-02-18 14:22] VITALS: BP 101/55
== END 2021-02-18 13:15 | disposition hospice, home (50) | DRG 64 ==
LOC: EDBD → EDUNIT# → N.ED 09:40 → N.EDINP 09:40 → N.3E 13:54 → SUATTDRO 02-15 08:15
PROVIDERS: ADMIT Hospitalist; ATTEND Internal Medicine